=== PATIENT | female | born 1935 | race Caucasian/White ===

== ENCOUNTER → 2017-11-25 00:26 | Outpatient (CLI) | payer MEDICARE, OTHER, SELFPAY ==
--- NOTE | 2017-11-25 14:48 | DI.REPORT_ITS ---
SYMPTOMS/DIAGNOSIS: TRANSIENT DIZZINESS, R42 CAROTID ULTRASOUND: Comparison is made with September,. Intimal thickening and focal calcified plaque are seen along the right common carotid artery. No flow is detectable in the right internal carotid artery. There are elevated velocities in the right external carotid artery. Plaque is seen at the left common carotid bulb and left internal carotid artery. There are significant velocity elevations throughout, consistent with greater than 70% stenosis. Both vertebral arteries show antegrade flow. Elevated systolic velocities also seen in the left external carotid artery. IMPRESSION: 1. Occlusion of the right internal carotid artery. 2. Severe stenosis, greater than 70%, of the left internal carotid artery.
== END ==
PROVIDERS: Visit Provider Internal Medicine
DX: R42 Dizziness and giddiness (principal); I65.23 Occlusion and stenosis of bilateral carotid arteries
CPT/HCPCS: 93880

== ENCOUNTER → 2017-12-06 02:23 | Outpatient (CLI) | payer MEDICARE, OTHER, SELFPAY ==
--- NOTE | 2017-12-30 16:37 | ZIOP_ITS ---
ZIO PATCH REPORT Date of Dictation: 12/29/17 Referral: Saji Wilson M.D. Study Indication: Dizziness and giddiness. Enrollment: 12/06/17 until 12/20/17 Findings: 1. Baseline sinus rhythm, 63-116 bpm, average 86 bpm. 2. Occasional PAC, 252 SVT runs, fastest 4 beats at 187 bpm, longest 17 beats at 115 bpm. Recurrent episodes with possible ectopic atrial rhythm/ectopic atrial tachycardia, 78-110 bpm. No atrial fibrillation. 3. Rare PVC, no VT. 4. No significant pauses. 5. One diary event: Dizziness with narrow complex rhythm, 98 bpm, sinus rhythm versus ectopic atrial rhythm.
== END ==
PROVIDERS: Visit Provider Internal Medicine
DX: R55 Syncope and collapse (principal); R42 Dizziness and giddiness; I47.1 Supraventricular tachycardia
CPT/HCPCS: 0296T; 93225

== ENCOUNTER 2017-12-29 09:21 | Outpatient (CLI) | payer MEDICARE, OTHER, SELFPAY | END 2017-12-29 09:41 | PROVIDERS: PCP Internal Medicine; Referring Provider Internal Medicine; Visit Provider Internal Medicine Cardiovascular Disease | DX: R42 Dizziness and giddiness (principal); R55 Syncope and collapse; I47.1 Supraventricular tachycardia | CPT/HCPCS: 0298T ==

== ENCOUNTER 2018-01-15 11:24 | Emergency (ER) | payer MEDICARE, OTHER, SELFPAY ==
[2018-01-15] VITALS (17 sets, daily range): BP systolic 126–154; BP diastolic 60–108; PULSE 74–86; RESP 22–33; TEMP 36.6; O2SAT 91–99
[2018-01-15 11:52] LABS: Abs Immature Grans 0.01 k/cumm (0.0-0.09); Absolute Basophil Count 0.07 k/cumm (0.0-0.2); Absolute Eosinophil Count 0.11 k/cumm (0.0-0.7); Absolute Lymphocyte Count 1.08 k/cumm (1.2-3.4); Absolute Monocyte Count 0.54 k/cumm (0.11-0.7); Absolute Neutrophil Count 3.75 k/cumm (1.2-6.7); Basophils % 1.3; HGB 13.6 g/dL (12.0-15.5); Immature Grans % 0.2; Lymphocytes % 19.4; Mean Corpuscular Hemoglobin 32.3 pg (27.0-33.0); Mean Platelet Volume 10.2 fL (8.0-11.0); Monocytes % 9.7; Neutrophils % 67.4; Platelet Count 223 x1000/uL (130-400); RBC 4.21 m/cumm (4.00-5.20); RBC Distribution Width 13.2 % (11.7-14.6); White Blood Cell Count 5.56 k/cumm (4.4-10.8)
[2018-01-15 11:58] LABS: PTT Activated 22.9 sec (21.0-31.4)
[2018-01-15 11:59] LABS: ALT 15 U/L (12-78); AST 12 U/L (15-37); Albumin 3.7 g/dL (3.4-5.0); Alkaline Phosphatase 70 U/L (46-116); Anion Gap 6.5 mmol/L (3-11); BUN 9 mg/dL (7-18); Bilirubin, Direct 0.16 mg/dL (0.00-0.20); Bilirubin, Total 0.8 mg/dL (0.2-1.0); CO2 29.5 mmol/L (21.0-32.0); CREATININE 0.73 mg/dL (0.55-1.02); Calcium 9.1 mg/dL (8.5-10.1); Chloride 101 mmol/L (98-107); Glucose 76 mg/dL (70-100); Potassium 3.5 mmol/L (3.5-5.1); Sodium 137 mmol/L (136-145); Total Protein 6.8 g/dL (6.4-8.2)
[2018-01-15 12:05] LABS: Troponin I < 0.02 ng/mL (0.00-0.06)
--- NOTE | 2018-01-15 12:05 | DI.RAD_ITS ---
SYMPTOM/DIAGNOSIS: CHEST PAIN PA AND LATERAL CHEST: Comparison is made with 01/29/16. Heart size and pulmonary vasculature are within normal limits. The lungs are clear and well expanded. No effusions or pneumothoraces are identified. No focal consolidating infiltrates are identified. The bones show degenerative changes in the spine. Incidental note is made of calcification of the mitral valve. IMPRESSION: No acute pulmonary process.
--- NOTE | 2018-01-15 12:06 | W.ED.GENAD ---
Discharge Plan Disposition Patient Disposition: HOME Condition: Improving Discharge Details Chief Complaint: Chest Pain Clinical Impression: Chronic chest wall pain Primary Care Provider: Saji Wilson ED Provider: Roxanne Wagoner Home Meds and New Rx's Prescriptions: Continue donepezil 5 MG tablet 5 mg PO DAILY RF: 0 simvastatin 10 MG tablet 10 mg PO DAILY RF: 0 propranolol 10 MG tablet 10 mg PO BID RF: 0 sertraline 25 MG tablet 25 mg PO DAILY RF: 0 omeprazole 20 MG capsule,delayed release(DR/EC) 20 mg PO DAILY Qty: 30 RF: 0 aspirin 81 mg Tablet,Chewable 81 mg PO DAILY RF: 0 Discharge Instructions Instructions: Chest Pain (ED), Chest Wall Pain (ED) Additional Instructions: Alternate tylenol or motrin as needed and directed for pain. Drink plenty of fluids and get plenty of rest. Follow-up with her scheduled appointment with your primary care doctor on Wednesday. Return immediately to the emergency department any worsening or new concerning symptoms. Discharge Data Discharge Physician: Roxanne Wagoner Medical Decision Making 82-year-old female with a history of dementia, hyperlipidemia who presents for chronic chest pain for the past year that occurs daily, but worse this morning and that it persisted longer than usual. states he usually gives patient a dose of his own nitro which relieves it at times but no relief after 2 doses this morning. No DVT/PE risk factors such as denies leg pain or swelling, recent travel, recent surgery. She has no complaints of fever or cough. She does admit to some shortness of breath at times with her episodes which are worsened with exertion and better with rest. Family does also admit that she has had a history of esophageal dilation and has had EGD in the past. Afebrile. Heart rate 80s. Blood pressure 132/66. Oxygen saturation 88-92% on room air. She has significant tenderness palpation of her anterior chest but no rash or trauma. Lungs are clear to auscultation. No calf tenderness or leg swelling. 1130: EKG: Rate of 83, sinus, peak T waves in V3 which is seen in previous. Less than [address] depression noted in 1 and V6 which is been seen in previous. T-wave inversion in aVL which is been seen in previous. No acute ST elevation. Differential diagnosis includes angina, ACS, pneumonia, aortic dissection, pulmonary embolism, GI etiology, musculoskeletal chest wall pain vs strain, costochondritis, arthritis. Will do a cardiac workup including d-dimer, BNP, chest x-ray. Will give a dose of aspirin and Toradol. 1325 --labs and imaging reviewed. White blood cell count normal at 5.5. D-dimer negative. Electrolytes within normal limits. Troponin negative. BNP 842. Chest x-ray no acute findings. Patient feels much better and is requesting to go home. Her pain is completely resolved. Nurse stated that patient's pain seemed improved before giving the Toradol. 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 As her pain was worse this morning and lasted longer than usual, recommended to check a second troponin and patient and family are agreeable. Patient has a follow-up appointment with PCP Dr. Wilson this week. Patient is requesting food. Will give food and f/u on second troponin. 1445 --second troponin negative. Patient and family is requesting to go home. Patient ate a full meal and denies any pain. They have a follow-up appointment with Dr. Wilson on Wednesday. Instructed to keep this appointment to discuss any further pain and whether any other additional medications such as steroids would be indicated. Otherwise instructed to alternate Tylenol and Motrin as needed and directed. Instructed on limiting Motrin due to risk of GI bleeding and confusion. Instructed to return immediately to the ER with any concerns. HPI General Mode of arrival: ambulatory. Date/Time Provider Initiated Documentation: 01/15/18 11:26. Limitations to Documentation: no limitations. Information obtained by: patient. HPI Narrative: Patient is an 82yo F with a history of chronic anterior chest pain for years who presents with anterior chest pain since 8 AM this morning. Patient has a history of dimension and is able to provide some history but mainly has been is able to help. Patient does state that the pain radiates from the right side of her chest to the left side of her chest. states that patient complains of daily anterior chest pain and that she complained of this same chest pain this morning but it seemed to last longer than usual. He gave her 2 of his own nitro ?2 without relief. He states sometimes this helps her with the pain. He states he has given it to her twice over the past few weeks sometimes with relief. Usually her episodes are worse with movement and exertion and better with rest. Patient has seen her primary care doctor Dr. Wilson for her chronic chest pain in the past and recently had a carotid ultrasound and career technical education teacher per Dr. Wilson which family was stated noted significant blockage and no arrhythmias, respectively. states that patient does complain of some chest pain when she has these episodes. Denies fatigue, vomiting, dizziness, fever or cough. Denies recent travel, recent surgery, leg pain or swelling. Past Medical History: Carotid artery stenosis, high cholesterol, chronic tremor Surgical history: Hysterectomy Social history: Denies tobacco, alcohol or drugs Medications: Aspirin, Donepezil, Zocor, Prilosec, Zoloft Allergies: NKDA Related Data Home Medications Medication Instructions Recorded Confirmed donepezil 5 mg PO DAILY 06/23/15 01/15/18 propranolol 10 mg PO BID 06/23/15 01/15/18 sertraline 25 mg PO DAILY 06/23/15 01/15/18 simvastatin 10 mg PO DAILY 06/23/15 01/15/18 omeprazole 20 mg PO DAILY #30 capsule. 06/24/15 01/15/18 aspirin 81 mg PO DAILY 01/15/18 01/15/18 Previous Rx's Medication Instructions Recorded omeprazole 20 mg PO DAILY #30 capsule. 06/24/15 Allergies Allergy/AdvReac Type Severity Reaction Status Date / Time No Known Allergies Allergy Unverified 01/15/18 11:37 General Stated Complaint: Chest Pain BOSSMAN: 2 Review of Systems Review of Systems All systems reviewed & are unremarkable except as noted in HPI and below Constitutional Denies chills, Denies excessive sweating, Denies fatigue, Denies fever(s), Denies weakness and Denies weight loss Eyes Patient Reports system reviewed and no additional complaints, except as docu and Denies blurry vision ENT Denies vertigo, Denies dizziness, Denies otalgia, Denies nasal congestion, Denies sore throat and Denies throat swelling Cardiovascular Reports chest pain, Denies syncope, Denies rapid heart rate and Denies dyspnea Respiratory Denies dyspnea Gastrointestinal Denies abdominal pain, Denies diarrhea and Denies vomiting Genitourinary Denies hematuria, Denies dysuria and Denies flank pain Musculoskeletal Denies back pain and Denies joint swelling Integumentary/Breasts Denies lesions and Denies rash Neurologic Denies vertigo, Denies dizziness, Denies syncope and Denies weakness Psychiatric Denies depression Endocrine Denies excessive sweating and Denies fatigue Hematologic/Lymphatic Denies easy bruising and Denies lymphadenopathy Allergic/Immunologic Denies throat swelling [facility] Social History Smoking/Tobacco Use Status: Never Exam Const General: cooperative and not in acute distress Orientation: alert and awake [facility] Head: normal to inspection Ears: hearing grossly normal bilaterally and external ears normal General nose exam: external nose normal Face and sinus: normal facial exam Mouth: oral mucosae normal Eyes General: appearance normal, both eyes and all related structures Eyelids: eyelids normal EOM: EOM intact bilaterally Neck Neck: normal visual inspection Chest Chest: normal inspection of the chest and tenderness (across anterior chest ) Resp Effort & Inspection: normal respiratory effort and able to speak in complete sentences Auscultation: clear to auscultation bilaterally Cardio Rate: regular rate Rhythm: regular rhythm GI Inspection: normal to inspection Palpation: soft, not firm, no guarding, no hepatosplenomegaly, no masses and nontender Auscultation: normal bowel sounds Skin General skin exam: no rashes or lesions noted Neuro General: alert and awake Cognition: normal cognition Speech: speech normal Motor: muscle tone normal throughout Sensory Exam: no sensory deficits noted Extrem General: normal to inspection, full ROM and no edema Psych Appearance: grossly normal Speech and Movement: speech and movement normal Affect: normal affect Course Vital Signs Temperature 97.9 F 01/15/18 11:31 Pulse 84 01/15/18 11:31 Respiratory Rate 26 H 01/15/18 11:31 Blood Pressure 132/66 01/15/18 11:31 Pulse Oximetry 96 01/15/18 11:31 Temperature 97.9 F 01/15/18 11:31 Pulse 84 01/15/18 11:31 Respiratory Rate 26 H 01/15/18 11:31 Blood Pressure 132/66 01/15/18 11:31 Pulse Oximetry 96 01/15/18 11:31 Lab/Test Results Lab/Test Results: Laboratory Tests Range/Units 01/15/18 01/15/18 11:36 11:36 WBC (4.4-10.8) k/cumm 5.56 RBC (4.00-5.20) m/cumm 4.21 Hgb (12.0-15.5) g/dL 13.6 Hct (36.0-46.0) % 40.0 MCV (80-95) fL 95.0 MCH (27.0-33.0) pg 32.3 MCHC (32.0-36.0) g/dL 34.0 RDW (11.7-14.6) % 13.2 Plt Count (130-400) x1000/uL 223 MPV (8.0-11.0) fL 10.2 Immature Gran % 0.2 Neutrophils % 67.4 Lymphocytes % 19.4 Monocytes % 9.7 Eosinophils % 2.0 Basophils % 1.3 Absolute Neutrophils (1.2-6.7) k/cumm 3.75 Absolute Lymphocytes (1.2-3.4) k/cumm 1.08 L Absolute Monocytes (0.11-0.7) k/cumm 0.54 Absolute Eosinophils (0.0-0.7) k/cumm 0.11 Absolute Basophils (0.0-0.2) k/cumm 0.07 PT (9.3-10.8) sec 10.0 INR (1.0-3.5) 1.0 APTT (21.0-31.4) sec 22.9
--- NOTE | 2018-01-15 12:11 | ED.GENADUL_ITS ---
Discharge Plan Disposition Patient Disposition: HOME Condition: Improving Discharge Details Chief Complaint: Chest Pain Clinical Impression: Chronic chest wall pain Primary Care Provider: Saji Wilson ED Provider: Roxanne Wagoner Home Meds and New Rx's Prescriptions: Continue donepezil 5 MG tablet 5 mg PO DAILY RF: 0 simvastatin 10 MG tablet 10 mg PO DAILY RF: 0 propranolol 10 MG tablet 10 mg PO BID RF: 0 sertraline 25 MG tablet 25 mg PO DAILY RF: 0 omeprazole 20 MG capsule,delayed release(DR/EC) 20 mg PO DAILY Qty: 30 RF: 0 aspirin 81 mg Tablet,Chewable 81 mg PO DAILY RF: 0 Discharge Instructions Instructions: Chest Pain (ED), Chest Wall Pain (ED) Additional Instructions: Alternate tylenol or motrin as needed and directed for pain. Drink plenty of fluids and get plenty of rest. Follow-up with her scheduled appointment with your primary care doctor on Wednesday. Return immediately to the emergency department any worsening or new concerning symptoms. Discharge Data Discharge Physician: Roxanne Wagoner Medical Decision Making 82-year-old female with a history of dementia, hyperlipidemia who presents for chronic chest pain for the past year that occurs daily, but worse this morning and that it persisted longer than usual. states he usually gives patient a dose of his own nitro which relieves it at times but no relief after 2 doses this morning. No DVT/PE risk factors such as denies leg pain or swelling, recent travel, recent surgery. She has no complaints of fever or cough. She does admit to some shortness of breath at times with her episodes which are worsened with exertion and better with rest. Family does also admit that she has had a history of esophageal dilation and has had EGD in the past. Afebrile. Heart rate 80s. Blood pressure 132/66. Oxygen saturation 88-92% on room air. She has significant tenderness palpation of her anterior chest but no rash or trauma. Lungs are clear to auscultation. No calf tenderness or leg swelling. 1130: EKG: Rate of 83, sinus, peak T waves in V3 which is seen in previous. Less than [address] depression noted in 1 and V6 which is been seen in previous. T-wave inversion in aVL which is been seen in previous. No acute ST elevation. Differential diagnosis includes angina, ACS, pneumonia, aortic dissection, pulmonary embolism, GI etiology, musculoskeletal chest wall pain vs strain, costochondritis, arthritis. Will do a cardiac workup including d-dimer, BNP, chest x-ray. Will give a dose of aspirin and Toradol. 1325 --labs and imaging reviewed. White blood cell count normal at 5.5. D- dimer negative. Electrolytes within normal limits. Troponin negative. BNP 842. Chest x-ray no acute findings. Patient feels much better and is requesting to go home. Her pain is completely resolved. Nurse stated that patient's pain seemed improved before giving the Toradol. 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 As her pain was worse this morning and lasted longer than usual, recommended to check a second troponin and patient and family are agreeable. Patient has a follow-up appointment with PCP Dr. Wilson this week. Patient is requesting food. Will give food and f/u on second troponin. 1445 --second troponin negative. Patient and family is requesting to go home. Patient ate a full meal and denies any pain. They have a follow-up appointment with Dr. Wilson on Wednesday. Instructed to keep this appointment to discuss any further pain and whether any other additional medications such as steroids would be indicated. Otherwise instructed to alternate Tylenol and Motrin as needed and directed. Instructed on limiting Motrin due to risk of GI bleeding and confusion. Instructed to return immediately to the ER with any concerns. HPI General Mode of arrival: ambulatory . Date/Time Provider Initiated Documentation: 01/15/18 11:26 . Limitations to Documentation: no limitations . Information obtained by: patient . HPI Narrative: Patient is an 82yo F with a history of chronic anterior chest pain for years who presents with anterior chest pain since 8 AM this morning. Patient has a history of dimension and is able to provide some history but mainly has been is able to help. Patient does state that the pain radiates from the right side of her chest to the left side of her chest. states that patient complains of daily anterior chest pain and that she complained of this same chest pain this morning but it seemed to last longer than usual. He gave her 2 of his own nitro ?2 without relief. He states sometimes this helps her with the pain. He states he has given it to her twice over the past few weeks sometimes with relief. Usually her episodes are worse with movement and exertion and better with rest. Patient has seen her primary care doctor Dr. Wilson for her chronic chest pain in the past and recently had a carotid ultrasound and athletic monitor per Dr. Wilson which family was stated noted significant blockage and no arrhythmias, respectively. states that patient does complain of some chest pain when she has these episodes. Denies fatigue, vomiting, dizziness, fever or cough. Denies recent travel, recent surgery, leg pain or swelling. Past Medical History: Carotid artery stenosis, high cholesterol, chronic tremor Surgical history: Hysterectomy Social history: Denies tobacco, alcohol or drugs Medications: Aspirin, Donepezil, Zocor, Prilosec, Zoloft Allergies: NKDA Related Data Home Medications Medication Instructions Recorded Confirmed donepezil 5 mg PO DAILY 06/23/15 01/15/18 propranolol 10 mg PO BID 06/23/15 01/15/18 sertraline 25 mg PO DAILY 06/23/15 01/15/18 simvastatin 10 mg PO DAILY 06/23/15 01/15/18 omeprazole 20 mg PO DAILY #30 capsule. 06/24/15 01/15/18 aspirin 81 mg PO DAILY 01/15/18 01/15/18 Previous Rx's Medication Instructions Recorded omeprazole 20 mg PO DAILY #30 capsule. 06/24/15 Allergies Allergy/AdvReac Type Severity Reaction Status Date / Time No Known Allergies Allergy Unverified 01/15/18 11:37 General Stated Complaint: Chest Pain BOSSMAN: 2 Review of Systems Review of Systems All systems reviewed & are unremarkable except as noted in HPI and below Constitutional Denies chills, Denies excessive sweating, Denies fatigue, Denies fever(s), Denies weakness and Denies weight loss Eyes Patient Reports system reviewed and no additional complaints, except as docu and Denies blurry vision ENT Denies vertigo, Denies dizziness, Denies otalgia, Denies nasal congestion, Denies sore throat and Denies throat swelling Cardiovascular Reports chest pain, Denies syncope, Denies rapid heart rate and Denies dyspnea Respiratory Denies dyspnea Gastrointestinal Denies abdominal pain, Denies diarrhea and Denies vomiting Genitourinary Denies hematuria, Denies dysuria and Denies flank pain Musculoskeletal Denies back pain and Denies joint swelling Integumentary/Breasts Denies lesions and Denies rash Neurologic Denies vertigo, Denies dizziness, Denies syncope and Denies weakness Psychiatric Denies depression Endocrine Denies excessive sweating and Denies fatigue Hematologic/Lymphatic Denies easy bruising and Denies lymphadenopathy Allergic/Immunologic Denies throat swelling [facility] Social History Smoking/Tobacco Use Status: Never Exam Const General: cooperative and not in acute distress Orientation: alert and awake [facility] Head: normal to inspection Ears: hearing grossly normal bilaterally and external ears normal General nose exam: external nose normal Face and sinus: normal facial exam Mouth: oral mucosae normal Eyes General: appearance normal, both eyes and all related structures Eyelids: eyelids normal EOM: EOM intact bilaterally Neck Neck: normal visual inspection Chest Chest: normal inspection of the chest and tenderness (across anterior chest ) Resp Effort & Inspection: normal respiratory effort and able to speak in complete sentences Auscultation: clear to auscultation bilaterally Cardio Rate: regular rate Rhythm: regular rhythm GI Inspection: normal to inspection Palpation: soft, not firm, no guarding, no hepatosplenomegaly, no masses and nontender Auscultation: normal bowel sounds Skin General skin exam: no rashes or lesions noted Neuro General: alert and awake Cognition: normal cognition Speech: speech normal Motor: muscle tone normal throughout Sensory Exam: no sensory deficits noted Extrem General: normal to inspection, full ROM and no edema Psych Appearance: grossly normal Speech and Movement: speech and movement normal Affect: normal affect Course Vital Signs Temperature 97.9 F 01/15/18 11:31 Pulse 84 01/15/18 11:31 Respiratory Rate 26 H 01/15/18 11:31 Blood Pressure 132/66 01/15/18 11:31 Pulse Oximetry 96 01/15/18 11:31 Temperature 97.9 F 01/15/18 11:31 Pulse 84 01/15/18 11:31 Respiratory Rate 26 H 01/15/18 11:31 Blood Pressure 132/66 01/15/18 11:31 Pulse Oximetry 96 01/15/18 11:31 Lab/Test Results Lab/Test Results: Laboratory Tests Range/Units 01/15/18 01/15/18 11:36 11:36 WBC (4.4-10.8) k/cumm 5.56 RBC (4.00-5.20) m/cumm 4.21 Hgb (12.0-15.5) g/dL 13.6 Hct (36.0-46.0) % 40.0 MCV (80-95) fL 95.0 MCH (27.0-33.0) pg 32.3 MCHC (32.0-36.0) g/dL 34.0 RDW (11.7-14.6) % 13.2 Plt Count (130-400) x1000/uL 223 MPV (8.0-11.0) fL 10.2 Immature Gran % 0.2 Neutrophils % 67.4 Lymphocytes % 19.4 Monocytes % 9.7 Eosinophils % 2.0 Basophils % 1.3 Absolute Neutrophils (1.2-6.7) k/cumm 3.75 Absolute Lymphocytes (1.2-3.4) k/cumm 1.08 L Absolute Monocytes (0.11-0.7) k/cumm 0.54 Absolute Eosinophils (0.0-0.7) k/cumm 0.11 Absolute Basophils (0.0-0.2) k/cumm 0.07 PT (9.3-10.8) sec 10.0 INR (1.0-3.5) 1.0 APTT (21.0-31.4) sec 22.9
[2018-01-15 12:30] LABS: NT-proBNP 842 pg/mL
--- NOTE | 2018-01-15 12:34 | DI.VRAD_ITS ---
EXAM: XR Chest, 2 Views CLINICAL HISTORY: 82 years old, female; Pain; Chest pain; Type not specified TECHNIQUE: Frontal and lateral views of the chest. COMPARISON: CR CHEST 2 VIEWS PA,LAT 01/29/2016 2:32 PM FINDINGS: Lungs: Mild bilateral interstitial pattern of chronic changes. No infiltrates or effusions. Pleural space: Unremarkable. No pneumothorax. Heart: Unremarkable. No cardiomegaly. Mediastinum: Unremarkable. Bones/joints: Unremarkable. Vasculature: Atherosclerotic aortic arch. IMPRESSION: No infiltrates or effusions. Dictated and Authenticated by: Osman Aburto MD. Ordering:YOLANDA KIRKPATRICK MD
[2018-01-15 12:40] LABS: D-Dimer 398 ng/mlFEU (<500)
[2018-01-15] MEDS: Ketorolac 30 MG/ML VIAL IM (13:05)
[2018-01-15 14:41] LABS: Troponin I < 0.02 ng/mL (0.00-0.06)
== END 2018-01-15 14:57 | disposition home or self-care (01) ==
PROVIDERS: Emergency Provider Physician Assistant; PCP Internal Medicine
DX: R07.89 Other chest pain (principal); G89.29 Other chronic pain; F03.90 Unspecified dementia, unspecified severity, without behavioral disturbance, psychotic disturbance, mood disturbance, and anxiety
CPT/HCPCS: 36415; 80053; 80076; 93005; 96372; 99285; 71046; 83735; 83880; 84484; 85025; 85379; 85610; 85730; 93010; J1885

== ENCOUNTER 2018-06-10 21:43 | Inpatient (IN) | payer MEDICARE, OTHER, SELFPAY ==
[2018-06-10] VITALS (25 sets, daily range): BP systolic 102–175; BP diastolic 40–89; PULSE 117–156; RESP 2–50; TEMP 36.1–37.3; O2SAT 70–99
[2018-06-10] MEDS: LORazepam 2 MG/ML VIAL 1 MG IVP (21:51)
--- NOTE | 2018-06-10 21:57 | ED.GENADUL_ITS ---
Discharge Plan Disposition Patient Disposition: [facility] INPATIENT Condition: Serious Discharge Details Chief Complaint: SOB Clinical Impression: Acute respiratory distress Reason For Visit: MARYA Primary Care Provider: Saji Wilson ED Provider: Jose Ramon Castellano [place] Meds and New Rx's Prescriptions: No Action donepezil 5 MG tablet 5 mg PO DAILY RF: 0 simvastatin 10 MG tablet 10 mg PO DAILY RF: 0 propranolol 10 MG tablet 10 mg PO BID RF: 0 sertraline 25 MG tablet 25 mg PO DAILY RF: 0 omeprazole 20 MG capsule,delayed release(DR/EC) 20 mg PO DAILY Qty: 30 RF: 0 aspirin 81 mg Tablet,Chewable 81 mg PO DAILY RF: 0 Medical Decision Making Patient arrives in severe respiratory distress. and daughter arrive with her. Patient agitated, anxious, hypoxic despite nasal cannula oxygen. Discussed with what patient's wishes would be. He states she would not want to be intubated nor would she want to be resuscitated. Therefore, elected to give Ativan and try BiPAP while obtaining chest x-ray, EKG, laboratory studies. Patient was given 1 mg of Ativan IV. She was quite agitated and anxious. Unfortunately, this was probably a little too much for the patient. Her respiratory drive dropped dramatically. She was on BiPAP. I chose to reverse her to some degree with 0.25 mg of Romazicon. She responded to this and had a better respiratory drive. Saturations came up into the 90s with BiPAP at 10/ 100%. Chest x-ray was obtained. She has diffuse alveolar infiltrates may be related to infection versus pulmonary edema. Flu swab was obtained and is negative. She does have an elevated white count. Spoke with hospitalist and had him come in to evaluate and discuss treatment plans. Patient was given ceftriaxone and azithromycin. Troponin did come back indeterminate at 0.2. BNP around 2500 which is the highest it has been for her. Electrolytes are okay. Differential includes pulmonary edema however she has no elevated blood pressure which would have caused her to flash. It is possible that is related to ARDS and influenza despite a negative flu. Possible that is multi-focal pneumonia and she has been given antibiotics. She has received a few doses of morphine 2 mg IV which helped dramatically. Li has been placed. Patient will be admitted to the hospitalist service for further management. Lab Data Lab results reviewed: Yes I reviewed the patient's lab results. ECG Data Attestation: I personally reviewed and interpreted this ECG (s) as follows: Prior ECG tracings: available for review Interpretation: Appears to be sinus tachycardia with frequent ectopic beats. She has a left bundle branch block present. She has had incomplete left bundle branch block previously. HPI General Mode of arrival: EMS . Date/Time Provider Initiated Documentation: 06/10/18 21:53 . Limitations to Documentation: altered mental status . Information obtained by: family and EMS . HPI Narrative: Patient is brought in with severe respiratory distress. EMS reports room air saturations in the 70s on their arrival. They did attempt nonrebreather as well as CPAP which patient would not tolerate. She arrives on nasal cannula with saturations in the high 80s. She is agitated and anxious. EMS was able to establish an IV. Per the patient has had a cold with congestion and cough for the last week. No fever that he is aware of. She has chronic complaints of chest pain but as far as he knows did not complain of chest pain today. After dinner she abruptly became short of breath. She had not been having difficulty breathing prior to that despite the congestion and cough. She does not have a history of COPD. She has never been a smoker. She has never had a heart attack or heart problems that they are aware of. Related Data Home Medications Medication Instructions Recorded Confirmed donepezil 5 mg PO DAILY 06/23/15 01/15/18 propranolol 10 mg PO BID 06/23/15 01/15/18 sertraline 25 mg PO DAILY 06/23/15 01/15/18 simvastatin 10 mg PO DAILY 06/23/15 01/15/18 omeprazole 20 mg PO DAILY #30 capsule. 06/24/15 01/15/18 aspirin 81 mg PO DAILY 01/15/18 01/15/18 Previous Rx's Medication Instructions Recorded omeprazole 20 mg PO DAILY #30 capsule. 06/24/15 Allergies Allergy/AdvReac Type Severity Reaction Status Date / Time No Known Allergies Allergy Unverified 06/10/18 22:24 General Stated Complaint: SOB BOSSMAN: 1 Review of Systems Review of Systems Unobtainable due to (Severe respiratory distress) [facility] Medical History Carotid artery stenosis (Chronic) Hyperlipidemia (Chronic) Dementia (Chronic) Surgical History H/O: hysterectomy (Inactive) S/P cholecystectomy (Inactive) Social History Smoking and Tabacco status: Never Exam Const General: in distress Orientation: alert and awake HENMT Head: normocephalic and atraumatic Neck Neck: trachea midline, supple and no JVD Resp Effort & Inspection: respiratory distress and tachypneic Auscultation: rales, rhonchi and wheezes (few) Cardio Rate: tachycardic Rhythm: regular rhythm Heart Sounds: S1 normal and S2 normal GI Inspection: non-distended Palpation: soft Skin Other: Ashen color, no diaphoresis Neuro General: alert, awake, not oriented x3, no focal motor deficits and CN's II-XI intact bilaterally Extrem General: edema Course Vital Signs Temperature 97.0 F L 06/10/18 21:50 Pulse 120 H 06/10/18 21:50 Respiratory Rate 34 H 06/10/18 21:50 Blood Pressure 136/79 06/10/18 21:50 Pulse Oximetry 78 L 06/10/18 21:50 Temperature 97.0 F L 06/10/18 21:50 Temperature Source Temporal Artery Scan 06/10/18 21:50 Pulse 120 H 06/10/18 21:50 Respiratory Rate 34 H 06/10/18 21:50 Blood Pressure 136/79 06/10/18 21:50 Pulse Oximetry 78 L 06/10/18 21:50 Oxygen Delivery Method Nasal Cannula 06/10/18 21:50 Oxygen Flow Rate 6 06/10/18 21:50 Critical Care Time Critical Care Time: Yes Total Critical Care Time: 60 Attestation: respiratory distress
[2018-06-10] MEDS: Ondansetron 4 MG/2 ML VIAL IVP (22:02)
--- NOTE | 2018-06-10 22:14 | DI.RAD_ITS ---
SYMPTOM/DIAGNOSIS: RESPIRATORY DISTRESS PORTABLE AP CHEST: Comparison is made with 01/15/18. Heart size appears within normal limits. There are bilateral air space opacities. No gross effusions or pneumothoraces are identified. IMPRESSION: Bilateral pulmonary infiltrates. This may represent pneumonia however pulmonary edema cannot be excluded. Please correlate clinically.
--- NOTE | 2018-06-10 22:23 | DI.VRAD_ITS ---
EXAM: XR Chest, 1 View EXAM DATE/TIME: 06/10/2018 9:54 PM CLINICAL HISTORY: 82 years old, female; Signs and symptoms; Shortness of breath TECHNIQUE: XR of the chest, 1 view. COMPARISON: CR XR CHEST 2V PA LATERAL 01/15/2018 12:01 PM FINDINGS: Lungs: Diffuse patchy airspace process. Pleural space: Unremarkable. No evidence of pneumothorax. Heart/Mediastinum: Unremarkable. Heart size within normal limits for technique. Bones/joints: Unremarkable. IMPRESSION: Findings could represent bronchopneumonia or patchy alveolar pulmonary edema. 6 week followup study suggested as there are some focal components. Dictated and Authenticated by: Saji Fernandez MD. Ordering:RONALD Albright MD
[2018-06-10] MEDS: Albuterol/Ipratropium 3 ML UPD VIAL UPD (22:27)
[2018-06-10 22:30] LABS: HCT 43.7 % (36.0-46.0); HGB 13.8 g/dL (12.0-15.5); Mean Corp. HGB Concentration 31.6 g/dL (32.0-36.0); Mean Corpuscular Hemoglobin 30.7 pg (27.0-33.0); Mean Corpuscular Volume 97.1 fL (80-95); Mean Platelet Volume 10.6 fL (8.0-11.0); Platelet Count 328 x1000/uL (130-400); RBC Distribution Width 13.6 % (11.7-14.6); White Blood Cell Count 18.32 k/cumm (4.4-10.8)
[2018-06-10] MEDS: MORPHine 10 MG/ML VIAL 2 MG IVP ×2 (22:31→23:20)
[2018-06-10 22:52] LABS: Absolute Eosinophil Count 0.73 k/cumm (0.0-0.7); Absolute Lymphocyte Count 2.56 k/cumm (1.2-3.4); Absolute Monocyte Count 0.73 k/cumm (0.11-0.7); Absolute Neutrophil Count 14.11 k/cumm (1.2-6.7); Diff Comment Manual Differential; RBC Morphology Normal
[2018-06-10] MEDS: AZITHROMYCIN 500 MG in Normal Saline 250 ML 250 MG IVPB (22:52)
[2018-06-10 23:01] LABS: ALT 31 U/L (12-78); AST 40 U/L (15-37); Albumin 3.5 g/dL (3.4-5.0); Alkaline Phosphatase 107 U/L (46-116); Anion Gap 14.1 mmol/L (3-11); BUN 12 mg/dL (7-18); Bilirubin, Total 0.6 mg/dL (0.2-1.0); CO2 23.9 mmol/L (21.0-32.0); CREATININE 1.25 mg/dL (0.55-1.02); Calcium 8.7 mg/dL (8.5-10.1); Chloride 97 mmol/L (98-107); Estimated GFR 41.24 (mL/min/1.73m2); Glucose 405 mg/dL (70-100); Potassium 3.6 mmol/L (3.5-5.1); Sodium 135 mmol/L (136-145); Total Protein 7.6 g/dL (6.4-8.2)
[2018-06-10 23:02] LABS: NT-proBNP 2367 pg/mL
[2018-06-10 23:04] LABS: Troponin I 0.26 ng/mL (0.00-0.06)
--- NOTE | 2018-06-10 23:06 | NUR.NOTE ---
Nursing Note: Multiple family at bedside, patient remains on bipap. Remains tachycardic 120's-130's, RR 30's. IV abx infusing. Plan for hospitalist to come speak with family on plan of care.
[2018-06-10] MEDS: Furosemide 20 MG/2 ML VIAL (23:20)
--- NOTE | 2018-06-10 23:35 | HPE_ITS ---
Date of service: 06/10/18 Time of Service: 23:22 Assessment and Plan (1) SOB (shortness of breath): Current visit: Yes Status: Acute Shortness of breath. Etiology not clear at present though clearly the matter hinges on the meaning of the chest x-ray findings. Unclear if this is infectious, perhaps aspiration based on the suddenness of the symptom, perhaps flash pulmonary edema on a an ischemic basis, or possibly noncardiogenic pulmonary edema of unknown etiology. Moreover let it be noted that the EKG probably shows a sinus tachycardia with frequent ectopy though there are times when the rhythm is more suggestive of atrial fib relation, particularly on the 12-lead. However careful analysis of the monitor shows a by enlarge regular rhythm so I think the former interpretation is correct I mention this with it in mind the possibility that a primary arrhythmia may have been the precipitant here but I do not think this is case. Regardless, will continue to treat for both infection and congestive heart failure with empiric antibiotics and diarrhea. Will complete rule out protocol. Note the patient is far more comfortable than when he arrived and will continue as needed use of morphine as well. Advanced directives were reviewed with family and patient is DNR/DNI History of Present Illness Chief Complaint: SOB Narrative: Patient is a 82-year-old female with advanced dementia. She had a flulike illness several weeks ago, apparently had pretty much gotten over that. This evening she became suddenly short of breath. There was no report of chest pain but apparently laying down made the situation worse in the emergency room she was initially satting in the 70s and diffuse rales and rhonchi were noted chest x-ray showed diffuse airspace disease, multifocal pneumonitis versus just of heart failure. Patient was placed on BiPAP, received 2 mg of morphine and doses of Rocephin and Zithromax. She was admitted for further evaluation and management. Review of Systems Review of Systems Unobtainable due to mental status [facility] Medical History Carotid artery stenosis (Chronic) Hyperlipidemia (Chronic) Dementia (Chronic) Surgical History H/O: hysterectomy (Inactive) S/P cholecystectomy (Inactive) Social History Smoking and Tabacco status: Never Meds Home Medications Medication Instructions Recorded Confirmed Type donepezil 5 mg PO DAILY 06/23/15 01/15/18 History propranolol 10 mg PO BID 06/23/15 01/15/18 History sertraline 25 mg PO DAILY 06/23/15 01/15/18 History simvastatin 10 mg PO DAILY 06/23/15 01/15/18 History omeprazole 20 mg PO DAILY #30 capsule. 06/24/15 01/15/18 Rx aspirin 81 mg PO DAILY 01/15/18 01/15/18 History Allergies Allergy/AdvReac Type Severity Reaction Status Date / Time No Known Allergies Allergy Unverified 06/10/18 22:24 Exam Narrative Exam Narrative: Temp 37.3 pressure 104/40 pulse 119 respirations 29 O2 sat 99% on BiPAP HEENT shows no signs of head trauma. Neck is supple lungs show diffuse rhonchi by. Heart sounds are obscured by respirations, there is an irregular rhythm abdomen is soft nontender pelvic and rectal exams deferred extremities without edema neurological patient is oriented x1 moves all 4 Results Labs : 06/10/18 22:19 06/10/18 22:19 Laboratory Results - last 24 hr 06/10/18 06/10/18 06/10/18 22:19 22:19 22:19 WBC 18.32 H RBC 4.50 Hgb 13.8 Hct 43.7 MCV 97.1 H MCH 30.7 MCHC 31.6 L RDW 13.6 Plt Count 328 MPV 10.6 Immature Gran % 0.0 Neutrophils % 68.0 Band Neutrophils % 9.0 Lymphocytes % 14.0 Monocytes % 4.0 Eosinophils % 4.0 Basophils % 0.0 Metamyelocytes % 1.0 Absolute Neutrophils 14.11 H Absolute Lymphocytes 2.56 Absolute Monocytes 0.73 H Absolute Eosinophils 0.73 H Absolute Basophils 0.00 Differential Comment Manual differential RBC Morphology Normal Sodium 135 L Potassium 3.6 Chloride 97 L Carbon Dioxide 23.9 Anion Gap 14.1 H BUN 12 Creatinine 1.25 H Estimated GFR/1.73 m2 41.24 Glucose 405 H Calcium 8.7 Magnesium 2.0 Total Bilirubin 0.6 AST 40 H ALT 31 Alkaline Phosphatase 107 Troponin I 0.26 H* NT-Pro-B Natriuret Pep 2367 H Total Protein 7.6 Albumin 3.5 Last Vital Signs Temp 37.3 C 06/10/18 22:42 Pulse 119 H 06/10/18 23:07 Resp 29 H 06/10/18 23:07 BP 104/40 L 06/10/18 23:07 Pulse Ox 99 06/10/18 23:07
--- NOTE | 2018-06-10 23:42 | NUR.NOTE ---
Nursing Note: adams cath placed, remains on bipap, medicated with prn morphine for anxiety. plan for ICU admission.
[2018-06-11] VITALS (71 sets, daily range): BP systolic 93–161; BP diastolic 53–110; PULSE 88–153; RESP 8–97; TEMP 36.4–36.8; O2SAT 92–99
[2018-06-11] MEDS: MORPHine 10 MG/ML VIAL IVP ×4 (00:52→06:53)
[2018-06-11] MEDS: methylPREDNISolone SUCC 125 MG VIAL IVP (00:52)
[2018-06-11] MEDS: Normal Saline Flush 10 ML SYR IVP ×6 (00:53→08:32)
[2018-06-11] MEDS: Furosemide 20 MG/2 ML VIAL IVP (00:53)
[2018-06-11 07:27] LABS: HCT 40.6 % (36.0-46.0); Mean Corpuscular Volume 96.7 fL (80-95); Mean Platelet Volume 11.1 fL (8.0-11.0); Platelet Count 244 x1000/uL (130-400); RBC Distribution Width 13.8 % (11.7-14.6); White Blood Cell Count 18.48 k/cumm (4.4-10.8)
[2018-06-11 07:39] LABS: Anion Gap 10.6 mmol/L (3-11); BUN 14 mg/dL (7-18); CO2 27.4 mmol/L (21.0-32.0); CREATININE 1.14 mg/dL (0.55-1.02); Calcium 8.5 mg/dL (8.5-10.1); Chloride 102 mmol/L (98-107); Estimated GFR 45.86 (mL/min/1.73m2); Glucose 188 mg/dL (70-100); Potassium 3.9 mmol/L (3.5-5.1); Sodium 140 mmol/L (136-145)
[2018-06-11 07:55] LABS: Troponin I 6.68 ng/mL (0.00-0.06)
--- NOTE | 2018-06-11 08:11 | DI.VRAD_ITS ---
EXAM: XR Chest, 1 View EXAM DATE/TIME: 06/11/2018 6:43 AM CLINICAL HISTORY: 82 years old, female; Signs and symptoms; Shortness of breath TECHNIQUE: XR of the chest, 1 view. COMPARISON: SC XR PORTABLE CHEST AP 06/10/2018 10:05 PM FINDINGS: Lungs: Mild interval worsening of left mid lung zone multifocal patchy consolidation. Persistent right mid and lower lung zone patchy consolidation, unchanged. Pleural space: New bilateral pleural effusions, larger on right. No pneumothorax. Heart/Mediastinum: Normal-sized cardiac silhouette. Bones/joints: Degenerative changes throughout the thoracic and upper lumbar spine. IMPRESSION: 1. Persistent bilateral patchy consolidation with mild worsening on the left. 2. New bilateral small pleural effusions. Dictated and Authenticated by: Tony Bass MD. Ordering:CARLI Gaines MD
--- NOTE | 2018-06-11 08:30 | DI.RAD_ITS ---
SYMPTOM/DIAGNOSIS: F/U SOB PORTABLE AP CHEST: Comparison is made with 06/10/18. There is poor inspiration. Cardiac silhouette appears within normal limits. There are again seen bilateral pulmonary opacities. They have slightly progressed on the left. There are now small bilateral pleural effusions. No pneumothorax is identified. Degenerative changes are seen in the spine. IMPRESSION: Bilateral pulmonary infiltrates, left greater than right. New bilateral pleural effusions.
[2018-06-11] MEDS: Metoprolol 5 MG/5 ML VIAL 2.5 MG IVP (08:31)
[2018-06-11 09:25] LABS: PTT Activated 22.3 sec (21.0-31.4)
[2018-06-11] MEDS: PIPERACILLIN/TAZO 3.375 GM in Normal Saline 50 ML IVPB (10:20)
[2018-06-11] MEDS: methylPREDNISolone SUCC 125 MG VIAL 60 MG IVP (10:21)
[2018-06-11] MEDS: Aspirin 300 MG SUPP PR (10:21)
--- NOTE | 2018-06-11 10:27 | PDOC.CMIN ---
Care Management Initial Assess REASON FOR HOSPITALIZATION:: SOB PAST MEDICAL HISTORY/PAST SURGICAL HISTORY:: Medical: Carotid artery stenosis, hyperlipidemia, dementia. Surgical: Hysterectomy, cholecystectomy PREVIOUS FUNCTIONAL STATUS/SOCIAL/FAMILY SUPPORTS:: Lives with her , Darrell Sims, who is also the POA at their home in [place]. They have two daughters who are supportive, Jonna Haynes ([phone]) and Abel Salas ([phone]). Last hospital admission was as an outpatient for cataract removal in 2010. CURRENT FUNCTIONAL STATUS:: Lying in bed. Appears comfortable and responds to voice by opening her eyes. Bipap in use at this time. and both daughters are at her bedside. ADVANCE DIRECTIVES:: None on file Has patient been provided with information about the portal?: No Did the patient sign up for the portal?: No CODE STATUS:: DNR/DNI INSURANCE COVERAGE / FINANCIAL ISSUES:: Medicare. [employer] CURRENT HOME/COMMUNITY SERVICES/EQUIPMENT:: None at this time PRIMARY CARE PHYSICIAN:: [facility]: Kal Wilson MD POTENTIAL DISCHARGE NEEDS:: None anticipated at this time PATIENT/FAMILY EDUCATION NEEDS:: Discharge instructions ANTICIPATED BARRIERS TO DISCHARGE:: None identified TRANSPORTATION:: Family PLAN:: Plan transfer to [facility] as soon as bed is available. Hopefully today. Daughters will bring and meet her at [facility].
--- NOTE | 2018-06-11 11:43 | INITIAL_ITS ---
Care Management Initial Assess REASON FOR HOSPITALIZATION:: SOB PAST MEDICAL HISTORY/PAST SURGICAL HISTORY:: Medical: Carotid artery stenosis, hyperlipidemia, dementia. Surgical: Hysterectomy, cholecystectomy PREVIOUS FUNCTIONAL STATUS/SOCIAL/FAMILY SUPPORTS:: Lives with her , Darrell Sims, who is also the POA at their home in [place]. They have two daughters who are supportive, Jonna Haynes ([phone]) and Abel Salas ([phone]). Last hospital admission was as an outpatient for cataract removal in 2010. CURRENT FUNCTIONAL STATUS:: Lying in bed. Appears comfortable and responds to voice by opening her eyes. Bipap in use at this time. and both daughters are at her bedside. ADVANCE DIRECTIVES:: None on file Has patient been provided with information about the portal?: No Did the patient sign up for the portal?: No CODE STATUS:: DNR/DNI INSURANCE COVERAGE / FINANCIAL ISSUES:: Medicare. [employer] CURRENT HOME/COMMUNITY SERVICES/EQUIPMENT:: None at this time PRIMARY CARE PHYSICIAN:: [facility]: Kal Wilson MD POTENTIAL DISCHARGE NEEDS:: None anticipated at this time PATIENT/FAMILY EDUCATION NEEDS:: Discharge instructions ANTICIPATED BARRIERS TO DISCHARGE:: None identified TRANSPORTATION:: Family PLAN:: Plan transfer to [facility] as soon as bed is available. Hopefully today. Daughters will bring and meet her at [facility].
[2018-06-11 12:28] LABS: BE -1.4 mmol/L (-3-3); HCO3 25 mmol/L (22-28); pCO2 50 mmHg (34-47); pH 7.31 (7.35-7.45); pO2 66 mmHg (83-108); sO2 93 % (94-98); tCO2 23 mmol/L (22-29)
[2018-06-11 12:30] LABS: FIO2L 4 L; Site Left Radial
[2018-06-11 12:47] LABS: Troponin I 8.49 ng/mL (0.00-0.06)
--- NOTE | 2018-06-11 13:11 | W.PM.DS.N ---
Date of service: 06/11/18 Time of Service: 13:12 DS: Diagnosis Discharge Diagnosis (1) NSTEMI (non-ST elevated myocardial infarction): Status: Acute (2) Acute respiratory failure with hypoxia and hypercapnia: Status: Acute (3) Sepsis: Status: Acute (4) Multifocal pneumonia: Status: Acute (5) Acute CHF: Status: Acute (6) Bilateral pleural effusion: Status: Acute (7) Dysphagia: Status: Chronic (8) Hyperlipidemia: Status: Chronic (9) Alzheimer disease: Status: Chronic Discharge Plan Disposition Patient Disposition: [facility] Condition: Critical Discharge Details Reason For Visit: SOB Admit Date/Time: 06/10/18 23:47 Admit Provider: Eder Solano Attending Provider: Eder Solano Primary Care Provider: Saji Wilson Hospital Course Hospital Course: Ms Sims is an 82 year old female with PMHx of hyperlipidemia, nonsustained SVT seen on Halter monitor in 01/11, negative nuclear stress test in 2015, esophageal phase dysphagia requiring esophageal dilatation in the past, who was brought to [facility] ED on 06/10/18 by ambulance for shortness of breath and hypoxia to 70's on room air. The patient was also mildly agitated and received ativan, which was followed up oversedation, treated with flumazenil, but requiring BiPAP despite this due to respiratory depression. Her CXR was consistent with either/both multifocal pneumonia and CHF. She was diuresed and initiated on antibiotics (azithromycin, rocephin), which we then transitioned to zosyn due to suspicion for aspiration to have better anaerobic coverage and doxycycline for atypicals. She remained on BiPAP overnight and did not tolerated trial off of BiPAP today, having episoes of apnea off of it as well as CO2 retention. Meanwhile, her troponin went up from 0.26 on her initial presentation to 6.68 the morning of 06/11 to 8.49 in the early afternoon. The patient is not reporting any chest pain, but she did report chest pain to her yesterday. Her EKG is not significantly changed from prior done in December of 2017, is borderline for LBBB. She was initiated on heparin drip, but could not pass a nursing bedside swallow screen to safely be loaded with oral plavix. She received rectal aspirin. [facility] does not have cardiolony coverage over the weekend. At this point, the family is willing to have the patient transferred to [facility] to obtain services unavailable at [facility] such as cardiology, including the possibility of a cardiac intervention (they would not want a CABG). The patient is DNR/DNI. Dr Green at [facility] cardiology accepts the patient. We appreciate the help of our [facility] colleagues and wish the patient well. Home Meds and New Rx's Prescriptions: New atorvastatin [Lipitor] 40 mg Tablet 40 mg PO QPM Qty: 0 RF: 0 albuterol sulfate 2.5 mg /3 mL (0.083 %) Solution For Nebulization 2.5 mg UPD Q4H PRN PRNQty: 0 RF: 0 doxycycline hyclate 100 mg recon soln 100 mg IV Q12H Qty: 1 RF: 0 Solu-Medrol (PF) 125 mg/2 mL Recon Soln 60 mg IVP Q6H Qty: 0 RF: 0 pantoprazole [Protonix] 40 mg Recon Soln 40 mg IVP DAILY Qty: 0 RF: 0 piperacillin-tazobactam [Zosyn] 3.375 gram Recon Soln 3.375 g IVPB Q6H Qty: 0 RF: 0 heparin (porcine) in 0.9% NaCl 25,000 unit/250 mL parenteral solution See Rx Instructions .ROUTE .COMPLEX Qty: 3000 RF: 0 clopidogrel [Plavix] 75 mg tablet 75 mg PO DAILY Qty: 7 RF: 0 Continued donepezil 5 MG tablet 5 mg PO DAILY RF: 0 sertraline 25 MG tablet 25 mg PO DAILY RF: 0 aspirin 81 mg Tablet,Chewable 81 mg PO DAILY RF: 0 Discontinued simvastatin 10 MG tablet 10 mg PO DAILY RF: 0 Discharge Instructions Instructions: Acute Coronary Syndrome (DC), Bacterial Pneumonia (DC) Activity:: bedrest with BiPAP Diet:: NPO Discharge Orders Discharge Orders: Discharge Order (Routine); Ordered 06/11/18 Ordered By: Angely Lee Exam Narrative Exam Narrative: General: frail female, A&Ox1, on BiPAP, at the time last seen trying to get out of bed HEENT: EOMI, dry MM Heart: RRR, no m/r/g Lungs: diminished at B bases; otherwise, rhonchi B GI: abdomen is soft, nontender, nondistended Extremities: No e/c/c BLE's DS: Data Vitals/I&O Vitals and I&O: Vital Signs Temperature 36.4 C L 06/11/18 08:30 Temperature Source Tympanic 06/11/18 08:30 Pulse 108 H 06/11/18 11:30 Pulse 115 H 06/11/18 11:31 Respiratory Rate 24 06/11/18 11:31 Respiratory Effort Incrsd Work of Breathing 06/11/18 08:30 Respiratory Depth Shallow 06/11/18 08:30 Respiratory Pattern Tachypnea 06/11/18 08:30 Blood Pressure 141/79 H 06/11/18 11:30 Blood Pressure Mean 92 06/11/18 11:30 Blood Pressure Position Supine 06/11/18 08:30 Pulse Oximetry 95 06/11/18 12:06 Oxygen Delivery Method OxyMask 06/11/18 12:06 Oxygen Flow Rate 4 06/11/18 12:06 Fraction of Inspired Oxygen (FIO2) 32 06/11/18 08:30 Pain Level 0 06/10/18 23:07 Intake & Output 06/10/18 06/11/18 06/11/18 23:59 11:59 23:59 Intake Total 340 / 340 300 / 300 Output Total 800 / 800 Balance 340 / 340 -500 / -500 Weight 58.967 kg 58.8 kg Intake: IV 340 / 340 300 / 300 Oral 0 / 0 Output: Urine 800 / 800 Other: Urine Color Yellow Urine Appearance Clear Comment adams cath in place and draining dark win urine Pending studies at discharge: CXR 06/11/18: 1. Persistent bilateral patchy consolidation with mild worsening on the left. 2. New bilateral small pleural effusions. CXR 06/10/18: Findings could represent bronchopneumonia or patchy alveolar pulmonary edema. 6 week followup study suggested as there are some focal components. Labs on day of discharge: Labs from last 24 hours 06/11/18 06/11/18 06/11/18 16:00 12:24 12:17 WBC RBC Hgb Hct MCV MCH MCHC RDW Plt Count MPV Immature Gran % Neutrophils % Band Neutrophils % Lymphocytes % Monocytes % Eosinophils % Basophils % Metamyelocytes % Absolute Neutrophils Absolute Lymphocytes Absolute Monocytes Absolute Eosinophils Absolute Basophils Differential Comment RBC Morphology APTT Pending Sample Site Left radial pCO2 50 H pO2 66 L O2 Saturation 93 L ABG pH 7.31 L ABG HCO3 25 ABG Total CO2 23 ABG Base Excess -1.4 Oxygen Liter Flow 4 Sodium Potassium Chloride Carbon Dioxide Anion Gap BUN Creatinine Estimated GFR/1.73 m2 Glucose Calcium Magnesium Total Bilirubin AST ALT Alkaline Phosphatase Troponin I 8.49 H* NT-Pro-B Natriuret Pep Total Protein Albumin 06/11/18 06/11/18 06/11/18 08:59 06:30 06:30 WBC 18.48 H RBC 4.20 Hgb 13.0 Hct 40.6 MCV 96.7 H MCH 31.0 MCHC 32.0 RDW 13.8 Plt Count 244 MPV 11.1 H Immature Gran % Neutrophils % Band Neutrophils % Lymphocytes % Monocytes % Eosinophils % Basophils % Metamyelocytes % Absolute Neutrophils Absolute Lymphocytes Absolute Monocytes Absolute Eosinophils Absolute Basophils Differential Comment RBC Morphology APTT 22.3 Sample Site pCO2 pO2 O2 Saturation ABG pH ABG HCO3 ABG Total CO2 ABG Base Excess Oxygen Liter Flow Sodium Potassium Chloride Carbon Dioxide Anion Gap BUN Creatinine Estimated GFR/1.73 m2 Glucose Calcium Magnesium Total Bilirubin AST ALT Alkaline Phosphatase Troponin I 6.68 H* NT-Pro-B Natriuret Pep Total Protein Albumin 06/11/18 06/10/18 06/10/18 06:30 22:19 22:19 WBC 18.32 H RBC 4.50 Hgb 13.8 Hct 43.7 MCV 97.1 H MCH 30.7 MCHC 31.6 L RDW 13.6 Plt Count 328 MPV 10.6 Immature Gran % 0.0 Neutrophils % 68.0 Band Neutrophils % 9.0 Lymphocytes % 14.0 Monocytes % 4.0 Eosinophils % 4.0 Basophils % 0.0 Metamyelocytes % 1.0 Absolute Neutrophils 14.11 H Absolute Lymphocytes 2.56 Absolute Monocytes 0.73 H Absolute Eosinophils 0.73 H Absolute Basophils 0.00 Differential Comment Manual differential RBC Morphology Normal APTT Sample Site pCO2 pO2 O2 Saturation ABG pH ABG HCO3 ABG Total CO2 ABG Base Excess Oxygen Liter Flow Sodium 140 Potassium 3.9 Chloride 102 Carbon Dioxide 27.4 Anion Gap 10.6 BUN 14 Creatinine 1.14 H Estimated GFR/1.73 m2 45.86 Glucose 188 H D Calcium 8.5 Magnesium Total Bilirubin AST ALT Alkaline Phosphatase Troponin I NT-Pro-B Natriuret Pep 2367 H Total Protein Albumin 06/10/18 22:19 WBC RBC Hgb Hct MCV MCH MCHC RDW Plt Count MPV Immature Gran % Neutrophils % Band Neutrophils % Lymphocytes % Monocytes % Eosinophils % Basophils % Metamyelocytes % Absolute Neutrophils Absolute Lymphocytes Absolute Monocytes Absolute Eosinophils Absolute Basophils Differential Comment RBC Morphology APTT Sample Site pCO2 pO2 O2 Saturation ABG pH ABG HCO3 ABG Total CO2 ABG Base Excess Oxygen Liter Flow Sodium 135 L Potassium 3.6 Chloride 97 L Carbon Dioxide 23.9 Anion Gap 14.1 H BUN 12 Creatinine 1.25 H Estimated GFR/1.73 m2 41.24 Glucose 405 H Calcium 8.7 Magnesium 2.0 Total Bilirubin 0.6 AST 40 H ALT 31 Alkaline Phosphatase 107 Troponin I 0.26 H* NT-Pro-B Natriuret Pep Total Protein 7.6 Albumin 3.5 06/10/18 22:38 Blood Blood Culture - Pending Preliminary micro results at discharge 06/10/18 22:38 Blood Culture - Pending Blood [facility] Medical History Carotid artery stenosis (Chronic) Hyperlipidemia (Chronic) Dementia (Chronic) Dysphagia (Chronic) History of esophageal dilatation (Chronic) Surgical History H/O: hysterectomy (Inactive) S/P cholecystectomy (Inactive) Social History Smoking and Tabacco status: Never
--- NOTE | 2018-06-11 13:18 | DSE_ITS ---
Date of service: 06/11/18 Time of Service: 13:12 DS: Diagnosis Discharge Diagnosis (1) NSTEMI (non-ST elevated myocardial infarction): Status: Acute (2) Acute respiratory failure with hypoxia and hypercapnia: Status: Acute (3) Sepsis: Status: Acute (4) Multifocal pneumonia: Status: Acute (5) Acute CHF: Status: Acute (6) Bilateral pleural effusion: Status: Acute (7) Dysphagia: Status: Chronic (8) Hyperlipidemia: Status: Chronic (9) Alzheimer disease: Status: Chronic Discharge Plan Disposition Patient Disposition: [facility] Condition: Critical Discharge Details Reason For Visit: SOB Admit Date/Time: 06/10/18 23:47 Admit Provider: Eder Solano Attending Provider: Eder Solano Primary Care Provider: Saji Wilson Hospital Course Hospital Course: Ms Sims is an 82 year old female with PMHx of hyperlipidemia, nonsustained SVT seen on Halter monitor in 01/11, negative nuclear stress test in 2015, esophageal phase dysphagia requiring esophageal dilatation in the past, who was brought to [facility] ED on 06/10/18 by ambulance for shortness of breath and hypoxia to 70's on room air. The patient was also mildly agitated and received ativan, which was followed up oversedation, treated with flumazenil, but requiring BiPAP despite this due to respiratory depression. Her CXR was consistent with either/both multifocal pneumonia and CHF. She was diuresed and initiated on antibiotics ( azithromycin, rocephin), which we then transitioned to zosyn due to suspicion for aspiration to have better anaerobic coverage and doxycycline for atypicals. She remained on BiPAP overnight and did not tolerated trial off of BiPAP today, having episoes of apnea off of it as well as CO2 retention. Meanwhile, her troponin went up from 0.26 on her initial presentation to 6.68 the morning of 06/11 to 8.49 in the early afternoon. The patient is not reporting any chest pain, but she did report chest pain to her yesterday. Her EKG is not significantly changed from prior done in December of 2017, is borderline for LBBB. She was initiated on heparin drip, but could not pass a nursing bedside swallow screen to safely be loaded with oral plavix. She received rectal aspirin. [facility] does not have cardiolony coverage over the weekend. At this point, the family is willing to have the patient transferred to [facility] to obtain services unavailable at [facility] such as cardiology, including the possibility of a cardiac intervention (they would not want a CABG). The patient is DNR/DNI. Dr Green at [facility] cardiology accepts the patient. We appreciate the help of our [facility] colleagues and wish the patient well. Home Meds and New Rx's Prescriptions: New atorvastatin [Lipitor] 40 mg Tablet 40 mg PO QPM Qty: 0 RF: 0 albuterol sulfate 2.5 mg /3 mL (0.083 %) Solution For Nebulization 2.5 mg UPD Q4H PRN PRNQty: 0 RF: 0 doxycycline hyclate 100 mg recon soln 100 mg IV Q12H Qty: 1 RF: 0 Solu-Medrol (PF) 125 mg/2 mL Recon Soln 60 mg IVP Q6H Qty: 0 RF: 0 pantoprazole [Protonix] 40 mg Recon Soln 40 mg IVP DAILY Qty: 0 RF: 0 piperacillin-tazobactam [Zosyn] 3.375 gram Recon Soln 3.375 g IVPB Q6H Qty: 0 RF: 0 heparin (porcine) in 0.9% NaCl 25,000 unit/250 mL parenteral solution See Rx Instructions .ROUTE .COMPLEX Qty: 3000 RF: 0 clopidogrel [Plavix] 75 mg tablet 75 mg PO DAILY Qty: 7 RF: 0 Continued donepezil 5 MG tablet 5 mg PO DAILY RF: 0 sertraline 25 MG tablet 25 mg PO DAILY RF: 0 aspirin 81 mg Tablet,Chewable 81 mg PO DAILY RF: 0 Discontinued simvastatin 10 MG tablet 10 mg PO DAILY RF: 0 Discharge Instructions Instructions: Acute Coronary Syndrome (DC), Bacterial Pneumonia (DC) Activity:: bedrest with BiPAP Diet:: NPO Discharge Orders Discharge Orders: Discharge Order (Routine); Ordered 06/11/18 Ordered By: Angely Lee Exam Narrative Exam Narrative: General: frail female, A&Ox1, on BiPAP, at the time last seen trying to get out of bed HEENT: EOMI, dry MM Heart: RRR, no m/r/g Lungs: diminished at B bases; otherwise, rhonchi B GI: abdomen is soft, nontender, nondistended Extremities: No e/c/c BLE's DS: Data Vitals/I&O Vitals and I&O: Vital Signs Temperature 36.4 C L 06/11/18 08:30 Temperature Source Tympanic 06/11/18 08:30 Pulse 108 H 06/11/18 11:30 Pulse 115 H 06/11/18 11:31 Respiratory Rate 24 06/11/18 11:31 Respiratory Effort Incrsd Work of Breathing 06/11/18 08:30 Respiratory Depth Shallow 06/11/18 08:30 Respiratory Pattern Tachypnea 06/11/18 08:30 Blood Pressure 141/79 H 06/11/18 11:30 Blood Pressure Mean 92 06/11/18 11:30 Blood Pressure Position Supine 06/11/18 08:30 Pulse Oximetry 95 06/11/18 12:06 Oxygen Delivery Method OxyMask 06/11/18 12:06 Oxygen Flow Rate 4 06/11/18 12:06 Fraction of Inspired Oxygen (FIO2) 32 06/11/18 08:30 Pain Level 0 06/10/18 23:07 Intake & Output 06/10/18 06/11/18 06/11/18 23:59 11:59 23:59 Intake Total 340 / 340 300 / 300 Output Total 800 / 800 Balance 340 / 340 -500 / -500 Weight 58.967 kg 58.8 kg Intake: IV 340 / 340 300 / 300 Oral 0 / 0 Output: Urine 800 / 800 Other: Urine Color Yellow Urine Appearance Clear Comment adams cath in place and draining dark win urine Pending studies at discharge: CXR 06/11/18: 1. Persistent bilateral patchy consolidation with mild worsening on the left. 2. New bilateral small pleural effusions. CXR 06/10/18: Findings could represent bronchopneumonia or patchy alveolar pulmonary edema. 6 week followup study suggested as there are some focal components. Labs on day of discharge: Labs from last 24 hours 06/11/18 06/11/18 06/11/18 16:00 12:24 12:17 WBC RBC Hgb Hct MCV MCH MCHC RDW Plt Count MPV Immature Gran % Neutrophils % Band Neutrophils % Lymphocytes % Monocytes % Eosinophils % Basophils % Metamyelocytes % Absolute Neutrophils Absolute Lymphocytes Absolute Monocytes Absolute Eosinophils Absolute Basophils Differential Comment RBC Morphology APTT Pending Sample Site Left radial pCO2 50 H pO2 66 L O2 Saturation 93 L ABG pH 7.31 L ABG HCO3 25 ABG Total CO2 23 ABG Base Excess -1.4 Oxygen Liter Flow 4 Sodium Potassium Chloride Carbon Dioxide Anion Gap BUN Creatinine Estimated GFR/1.73 m2 Glucose Calcium Magnesium Total Bilirubin AST ALT Alkaline Phosphatase Troponin I 8.49 H* NT-Pro-B Natriuret Pep Total Protein Albumin 06/11/18 06/11/18 06/11/18 08:59 06:30 06:30 WBC 18.48 H RBC 4.20 Hgb 13.0 Hct 40.6 MCV 96.7 H MCH 31.0 MCHC 32.0 RDW 13.8 Plt Count 244 MPV 11.1 H Immature Gran % Neutrophils % Band Neutrophils % Lymphocytes % Monocytes % Eosinophils % Basophils % Metamyelocytes % Absolute Neutrophils Absolute Lymphocytes Absolute Monocytes Absolute Eosinophils Absolute Basophils Differential Comment RBC Morphology APTT 22.3 Sample Site pCO2 pO2 O2 Saturation ABG pH ABG HCO3 ABG Total CO2 ABG Base Excess Oxygen Liter Flow Sodium Potassium Chloride Carbon Dioxide Anion Gap BUN Creatinine Estimated GFR/1.73 m2 Glucose Calcium Magnesium Total Bilirubin AST ALT Alkaline Phosphatase Troponin I 6.68 H* NT-Pro-B Natriuret Pep Total Protein Albumin 06/11/18 06/10/18 06/10/18 06:30 22:19 22:19 WBC 18.32 H RBC 4.50 Hgb 13.8 Hct 43.7 MCV 97.1 H MCH 30.7 MCHC 31.6 L RDW 13.6 Plt Count 328 MPV 10.6 Immature Gran % 0.0 Neutrophils % 68.0 Band Neutrophils % 9.0 Lymphocytes % 14.0 Monocytes % 4.0 Eosinophils % 4.0 Basophils % 0.0 Metamyelocytes % 1.0 Absolute Neutrophils 14.11 H Absolute Lymphocytes 2.56 Absolute Monocytes 0.73 H Absolute Eosinophils 0.73 H Absolute Basophils 0.00 Differential Comment Manual differential RBC Morphology Normal APTT Sample Site pCO2 pO2 O2 Saturation ABG pH ABG HCO3 ABG Total CO2 ABG Base Excess Oxygen Liter Flow Sodium 140 Potassium 3.9 Chloride 102 Carbon Dioxide 27.4 Anion Gap 10.6 BUN 14 Creatinine 1.14 H Estimated GFR/1.73 m2 45.86 Glucose 188 H D Calcium 8.5 Magnesium Total Bilirubin AST ALT Alkaline Phosphatase Troponin I NT-Pro-B Natriuret Pep 2367 H Total Protein Albumin 06/10/18 22:19 WBC RBC Hgb Hct MCV MCH MCHC RDW Plt Count MPV Immature Gran % Neutrophils % Band Neutrophils % Lymphocytes % Monocytes % Eosinophils % Basophils % Metamyelocytes % Absolute Neutrophils Absolute Lymphocytes Absolute Monocytes Absolute Eosinophils Absolute Basophils Differential Comment RBC Morphology APTT Sample Site pCO2 pO2 O2 Saturation ABG pH ABG HCO3 ABG Total CO2 ABG Base Excess Oxygen Liter Flow Sodium 135 L Potassium 3.6 Chloride 97 L Carbon Dioxide 23.9 Anion Gap 14.1 H BUN 12 Creatinine 1.25 H Estimated GFR/1.73 m2 41.24 Glucose 405 H Calcium 8.7 Magnesium 2.0 Total Bilirubin 0.6 AST 40 H ALT 31 Alkaline Phosphatase 107 Troponin I 0.26 H* NT-Pro-B Natriuret Pep Total Protein 7.6 Albumin 3.5 06/10/18 22:38 Blood Blood Culture - Pending Preliminary micro results at discharge 06/10/18 22:38 Blood Culture - Pending Blood [facility] Medical History Carotid artery stenosis (Chronic) Hyperlipidemia (Chronic) Dementia (Chronic) Dysphagia (Chronic) History of esophageal dilatation (Chronic) Surgical History H/O: hysterectomy (Inactive) S/P cholecystectomy (Inactive) Social History Smoking and Tabacco status: Never
[2018-06-11] MEDS: DOXYCYCLINE 100 MG in Normal Saline 100 ML IVPB (13:48)
[2018-06-11] MEDS: Haloperidol 5 MG/ML VIAL 2 MG IM ×2 (14:04→14:16)
--- NOTE | 2018-06-11 14:55 | PDOC.CMDIS ---
LACE Index Scoring Tool - Questions: Length of Stay (in days): 2 Acuity (Admit via E.D.?): Yes Comorbidities: Dementia E.D. Visits: 1 - Answers: Total Score: 9 Risk of Readmission: Low Risk Care Management Discharge Reason for Hospitalization: SOB Discharge Plan: Transfer to [facility], [facility], for further Cardiology workup and treatment. Patient/Family Education Needs: Follow up appointments and all new medications.
--- NOTE | 2018-06-11 14:59 | CMDISCH_ITS ---
LACE Index Scoring Tool - Questions: Length of Stay (in days): 2 Acuity (Admit via E.D.?): Yes Comorbidities: Dementia E.D. Visits: 1 - Answers: Total Score: 9 Risk of Readmission: Low Risk Care Management Discharge Reason for Hospitalization: SOB Discharge Plan: Transfer to [facility], [facility], for further Cardiology workup and treatment. Patient/Family Education Needs: Follow up appointments and all new medications.
[2018-06-11] MEDS: LORazepam 2 MG/ML VIAL 0.5 MG IVP (15:00)
== END 2018-06-11 16:40 | disposition short-term general hospital (02) | DRG 189 ==
LOC: ER 06-11 00:02 → ICU 06-11 00:17
PROVIDERS: Admitting Provider General Practice; Emergency Provider Emergency Medicine; PCP Internal Medicine; Visit Provider Internal Medicine
DX: J96.02 Acute respiratory failure with hypercapnia (principal); I21.4 Non-ST elevation (NSTEMI) myocardial infarction; A41.9 Sepsis, unspecified organism; J90 Pleural effusion, not elsewhere classified; J96.01 Acute respiratory failure with hypoxia; R06.81 Apnea, not elsewhere classified; I50.9 Heart failure, unspecified; R13.10 Dysphagia, unspecified; E78.5 Hyperlipidemia, unspecified; G30.9 Alzheimer's disease, unspecified; F02.80 Dementia in other diseases classified elsewhere, unspecified severity, without behavioral disturbance, psychotic disturbance, mood disturbance, and anxiety; Z66 Do not resuscitate
CPT/HCPCS: 36415; 80048; 80053; 82805; 85027; 87040; 87449; 94640; 94644; 99222; 99239; 99291; 36600; 71045; 83735; 83880; 84484; 85025; 85730; 93005; 93010; 94660; J0456; J0696; J1630; J1941; J2060; J2270; J2543; J2930; J7620

== ENCOUNTER 2018-07-10 03:19 | Inpatient (IN) | payer MEDICARE, OTHER, SELFPAY ==
[2018-07-10] VITALS (56 sets, daily range): BP systolic 84–154; BP diastolic 35–92; PULSE 74–162; RESP 13–50; TEMP 30–36.9; O2SAT 65–99
--- NOTE | 2018-07-10 03:21 | W.ED.GENAD ---
Discharge Plan Disposition Patient Disposition: [facility] INPATIENT Condition: Stable Discharge Details Chief Complaint: SOB Clinical Impression: Pulmonary edema, Hypoxia Primary Care Provider: Saji Batista ED Provider: Alvin Armendariz [place] Meds and New Rx's Prescriptions: No Action donepezil 5 MG tablet 5 mg PO DAILY RF: 0 sertraline 25 MG tablet 25 mg PO DAILY RF: 0 aspirin 81 mg Tablet,Chewable 81 mg PO DAILY RF: 0 atorvastatin [Lipitor] 40 mg Tablet 40 mg PO QPM Qty: 0 RF: 0 albuterol sulfate 2.5 mg /3 mL (0.083 %) Solution For Nebulization 2.5 mg UPD Q4H PRN PRNQty: 0 RF: 0 doxycycline hyclate 100 mg recon soln 100 mg IV Q12H Qty: 1 RF: 0 Solu-Medrol (PF) 125 mg/2 mL Recon Soln 60 mg IVP Q6H Qty: 0 RF: 0 pantoprazole [Protonix] 40 mg Recon Soln 40 mg IVP DAILY Qty: 0 RF: 0 piperacillin-tazobactam [Zosyn] 3.375 gram Recon Soln 3.375 g IVPB Q6H Qty: 0 RF: 0 heparin (porcine) in 0.9% NaCl 25,000 unit/250 mL parenteral solution See Rx Instructions .ROUTE .COMPLEX Qty: 3000 RF: 0 clopidogrel [Plavix] 75 mg tablet 75 mg PO DAILY Qty: 7 RF: 0 Medical Decision Making 82 yo female with hx of dementia which limits hx from her as she can only tell me her name, hld, who had an nstemi from a pna last month, who comes in with family of worsening shortness of breath. She apparently saw Dr. batista her pcp on Wednesday and was told that she likely has a virus. She has worsening shortness of breath since and so family brought her here. On arrival she is 65% on room air with crackles throughout on lung exam and only able to speak in 1-2 word sentences. The family confirms with me she is dnr/dni. On lung u/s she has diffuse b lines throughout and suspect has pulmonary edema. Will obtain lab work, attempt bipap and also give a dose of lasix. pt would not tolerate sitting back for an adequate chest xray and refuses to do so despite attempts to ask her to. She is also refusing bipap, will attempt HFNC. pt doig better on hfnc, xray shows pulmonary edema and possible infiltrates, though her pictures doesn't fit entirely with pneumonia will order abx to cover for hcap. labs pending labs show troponin of 0.08, she still denies chest pain on my exam and could be downtrending from her admission last month. Spoke with dr. Solano who accepts pt, will admit to icu Differential Diagnosis chf, pna, acs, Imaging Data Radiologic Study: Attestation: I personally reviewed and interpreted this imaging study as follows: Imaging: X-Ray Radiologist's impression: IMPRESSION: Moderate bilateral infiltrate or edema. . Lab Data Lab results reviewed: Yes I reviewed the patient's lab results. ECG Data Attestation: I personally reviewed and interpreted this ECG (s) as follows: Prior ECG tracings: not available for review Interpretation: computer keysha afbi but I feel it is sinus rhythm with significant motion artifact from her tremor/moving, rate of 130, pvc's HPI General Mode of arrival: wheelchair. Date/Time Provider Initiated Documentation: 07/10/18 03:21. Limitations to Documentation: altered mental status (dementia). Information obtained by: family. History of Present Illness 82 year old F presents to the emergency department with the chief complaint of shortness of breath, described as severe, Patient started experiencing this day(s) (2) and it has been other (worsening). No relieving factors improve symptom(s), No exacerbating factors reported . Patient notes weakness. Patient did receive the following treatments prior to arrival, none Related Data Home Medications Medication Instructions Recorded Confirmed donepezil 5 mg PO DAILY 06/23/15 06/11/18 sertraline 25 mg PO DAILY 06/23/15 06/11/18 aspirin 81 mg PO DAILY 01/15/18 06/11/18 albuterol sulfate 2.5 mg UPD Q4H PRN PRN #0 ml 06/11/18 atorvastatin [Lipitor] 40 mg PO QPM #0 tab 06/11/18 clopidogrel [Plavix] 75 mg PO DAILY #7 tab 06/11/18 doxycycline hyclate 100 mg IV Q12H #1 each 06/11/18 heparin (porcine) in 0.9% NaCl See Rx Instructions .ROUTE 06/11/18 .COMPLEX #3000 ml methylprednisolone sod suc(PF) 60 mg IVP Q6H #0 ea 06/11/18 [Solu-Medrol (PF)] pantoprazole [Protonix] 40 mg IVP DAILY #0 ea 06/11/18 piperacillin-tazobactam [Zosyn] 3.375 g IVPB Q6H #0 ea 06/11/18 Previous Rx's Medication Instructions Recorded albuterol sulfate 2.5 mg UPD Q4H PRN PRN #0 ml 06/11/18 atorvastatin [Lipitor] 40 mg PO QPM #0 tab 06/11/18 clopidogrel [Plavix] 75 mg PO DAILY #7 tab 06/11/18 doxycycline hyclate 100 mg IV Q12H #1 each 06/11/18 heparin (porcine) in 0.9% NaCl See Rx Instructions .ROUTE 06/11/18 .COMPLEX #3000 ml methylprednisolone sod suc(PF) 60 mg IVP Q6H #0 ea 06/11/18 [Solu-Medrol (PF)] pantoprazole [Protonix] 40 mg IVP DAILY #0 ea 06/11/18 piperacillin-tazobactam [Zosyn] 3.375 g IVPB Q6H #0 ea 06/11/18 Allergies Allergy/AdvReac Type Severity Reaction Status Date / Time No Known Allergies Allergy Unverified 06/10/18 22:24 General BSOSMAN: 1 Review of Systems Review of Systems Unobtainable due to mental status [facility] Medical History Carotid artery stenosis (Chronic) Hyperlipidemia (Chronic) Dementia (Chronic) Dysphagia (Chronic) History of esophageal dilatation (Chronic) Surgical History H/O: hysterectomy (Inactive) S/P cholecystectomy (Inactive) Social History Smoking/Tobacco Use Status: Never Drug use: Never Details: unable to obtain r/t pt condition Additional Social history: unable to assess privately Exam Const General: acute distress Orientation: alert HENMT Head: normal to inspection Ears: external ears normal General nose exam: external nose normal Mouth: moist mucous membranes Eyes General: appearance normal, both eyes and all related structures Neck Neck: normal visual inspection Resp Effort & Inspection: decreased respiratory effort Skin General skin exam: no rashes or lesions noted Neuro General: alert Extrem General: normal to inspection Psych Mental Status: mental status grossly normal
--- NOTE | 2018-07-10 03:25 | DI.RAD_ITS ---
SYMPTOM/DIAGNOSIS: SOB PORTABLE AP CHEST AT 0345 HOURS: Comparison is made with 06/11/18. The examination is suboptimal. The lung apices and portions of the left hemithorax were coned from view. Heart size appears within normal limits. There do appear to be bilateral pulmonary infiltrates. This may represent edema versus pneumonia.
[2018-07-10] MEDS: Normal Saline Flush 10 ML SYR IVP ×3 (03:35→10:44)
--- NOTE | 2018-07-10 03:37 | ED.GENADUL_ITS ---
Discharge Plan Disposition Patient Disposition: [facility] INPATIENT Condition: Stable Discharge Details Chief Complaint: SOB Clinical Impression: Pulmonary edema, Hypoxia Primary Care Provider: Saji Batista ED Provider: Alvin Armendariz [place] Meds and New Rx's Prescriptions: No Action donepezil 5 MG tablet 5 mg PO DAILY RF: 0 sertraline 25 MG tablet 25 mg PO DAILY RF: 0 aspirin 81 mg Tablet,Chewable 81 mg PO DAILY RF: 0 atorvastatin [Lipitor] 40 mg Tablet 40 mg PO QPM Qty: 0 RF: 0 albuterol sulfate 2.5 mg /3 mL (0.083 %) Solution For Nebulization 2.5 mg UPD Q4H PRN PRNQty: 0 RF: 0 doxycycline hyclate 100 mg recon soln 100 mg IV Q12H Qty: 1 RF: 0 Solu-Medrol (PF) 125 mg/2 mL Recon Soln 60 mg IVP Q6H Qty: 0 RF: 0 pantoprazole [Protonix] 40 mg Recon Soln 40 mg IVP DAILY Qty: 0 RF: 0 piperacillin-tazobactam [Zosyn] 3.375 gram Recon Soln 3.375 g IVPB Q6H Qty: 0 RF: 0 heparin (porcine) in 0.9% NaCl 25,000 unit/250 mL parenteral solution See Rx Instructions .ROUTE .COMPLEX Qty: 3000 RF: 0 clopidogrel [Plavix] 75 mg tablet 75 mg PO DAILY Qty: 7 RF: 0 Medical Decision Making 82 yo female with hx of dementia which limits hx from her as she can only tell me her name, hld, who had an nstemi from a pna last month, who comes in with family of worsening shortness of breath. She apparently saw Dr. batista her pcp on Wednesday and was told that she likely has a virus. She has worsening shortness of breath since and so family brought her here. On arrival she is 65% on room air with crackles throughout on lung exam and only able to speak in 1-2 word sentences. The family confirms with me she is dnr/dni. On lung u/s she has diffuse b lines throughout and suspect has pulmonary edema. Will obtain lab work, attempt bipap and also give a dose of lasix. pt would not tolerate sitting back for an adequate chest xray and refuses to do so despite attempts to ask her to. She is also refusing bipap, will attempt HFNC. pt doig better on hfnc, xray shows pulmonary edema and possible infiltrates, though her pictures doesn't fit entirely with pneumonia will order abx to cover for hcap. labs pending labs show troponin of 0.08, she still denies chest pain on my exam and could be downtrending from her admission last month. Spoke with dr. Solano who accepts pt, will admit to icu Differential Diagnosis chf, pna, acs, Imaging Data Radiologic Study: Attestation: I personally reviewed and interpreted this imaging study as follows: Imaging: X-Ray Radiologist's impression: IMPRESSION: Moderate bilateral infiltrate or edema. . Lab Data Lab results reviewed: Yes I reviewed the patient's lab results. ECG Data Attestation: I personally reviewed and interpreted this ECG (s) as follows: Prior ECG tracings: not available for review Interpretation: computer keysha afbi but I feel it is sinus rhythm with significant motion artifact from her tremor/moving, rate of 130, pvc's HPI General Mode of arrival: wheelchair . Date/Time Provider Initiated Documentation: 07/10/18 03:21 . Limitations to Documentation: altered mental status (dementia) . Information obtained by: family . History of Present Illness 82 year old F presents to the emergency department with the chief complaint of shortness of breath, described as severe, Patient started experiencing this day(s) (2) and it has been other (worsening). No relieving factors improve symptom(s), No exacerbating factors reported . Patient notes weakness. Patient did receive the following treatments prior to arrival, none Related Data Home Medications Medication Instructions Recorded Confirmed donepezil 5 mg PO DAILY 06/23/15 06/11/18 sertraline 25 mg PO DAILY 06/23/15 06/11/18 aspirin 81 mg PO DAILY 01/15/18 06/11/18 albuterol sulfate 2.5 mg UPD Q4H PRN PRN #0 ml 06/11/18 atorvastatin [Lipitor] 40 mg PO QPM #0 tab 06/11/18 clopidogrel [Plavix] 75 mg PO DAILY #7 tab 06/11/18 doxycycline hyclate 100 mg IV Q12H #1 each 06/11/18 heparin (porcine) in 0.9% NaCl See Rx Instructions .ROUTE 06/11/18 .COMPLEX #3000 ml methylprednisolone sod suc(PF) 60 mg IVP Q6H #0 ea 06/11/18 [Solu-Medrol (PF)] pantoprazole [Protonix] 40 mg IVP DAILY #0 ea 06/11/18 piperacillin-tazobactam [Zosyn] 3.375 g IVPB Q6H #0 ea 06/11/18 Previous Rx's Medication Instructions Recorded albuterol sulfate 2.5 mg UPD Q4H PRN PRN #0 ml 06/11/18 atorvastatin [Lipitor] 40 mg PO QPM #0 tab 06/11/18 clopidogrel [Plavix] 75 mg PO DAILY #7 tab 06/11/18 doxycycline hyclate 100 mg IV Q12H #1 each 06/11/18 heparin (porcine) in 0.9% NaCl See Rx Instructions .ROUTE 06/11/18 .COMPLEX #3000 ml methylprednisolone sod suc(PF) 60 mg IVP Q6H #0 ea 06/11/18 [Solu-Medrol (PF)] pantoprazole [Protonix] 40 mg IVP DAILY #0 ea 06/11/18 piperacillin-tazobactam [Zosyn] 3.375 g IVPB Q6H #0 ea 06/11/18 Allergies Allergy/AdvReac Type Severity Reaction Status Date / Time No Known Allergies Allergy Unverified 06/10/18 22:24 General BOSSMAN: 1 Review of Systems Review of Systems Unobtainable due to mental status [facility] Medical History Carotid artery stenosis (Chronic) Hyperlipidemia (Chronic) Dementia (Chronic) Dysphagia (Chronic) History of esophageal dilatation (Chronic) Surgical History H/O: hysterectomy (Inactive) S/P cholecystectomy (Inactive) Social History Smoking/Tobacco Use Status: Never Drug use: Never Details: unable to obtain r/t pt condition Additional Social history: unable to assess privately Exam Const General: acute distress Orientation: alert HENMT Head: normal to inspection Ears: external ears normal General nose exam: external nose normal Mouth: moist mucous membranes Eyes General: appearance normal, both eyes and all related structures Neck Neck: normal visual inspection Resp Effort & Inspection: decreased respiratory effort Skin General skin exam: no rashes or lesions noted Neuro General: alert Extrem General: normal to inspection Psych Mental Status: mental status grossly normal
[2018-07-10] MEDS: Furosemide 40 MG/4 ML VIAL IVP (03:45)
[2018-07-10 04:02] LABS: Abs Immature Grans 0.03 k/cumm (0.0-0.09); Absolute Basophil Count 0.07 k/cumm (0.0-0.2); Absolute Eosinophil Count 0.35 k/cumm (0.0-0.7); Absolute Monocyte Count 0.49 k/cumm (0.11-0.7); Absolute Neutrophil Count 7.73 k/cumm (1.2-6.7); Basophils % 0.6; Eosinophils % 3.1; HCT 45.2 % (36.0-46.0); HGB 14.4 g/dL (12.0-15.5); Immature Grans % 0.3; Lymphocytes % 22.4; Mean Corp. HGB Concentration 31.9 g/dL (32.0-36.0); Mean Corpuscular Volume 97.4 fL (80-95); Mean Platelet Volume 10.5 fL (8.0-11.0); Monocytes % 4.4; Neutrophils % 69.2; Platelet Count 277 x1000/uL (130-400); RBC 4.64 m/cumm (4.00-5.20); White Blood Cell Count 11.17 k/cumm (4.4-10.8)
[2018-07-10] MEDS: PIPERACILLIN/TAZO 3.375 GM in Normal Saline 50 ML IVPB ×3 (04:13→19:35)
[2018-07-10 04:15] LABS: PTT Activated 22.7 sec (21.0-31.4); Prothrombin Time 9.7 sec (9.3-11.0)
--- NOTE | 2018-07-10 04:20 | DI.VRAD_ITS ---
EXAM: XR Chest, 1 View EXAM DATE/TIME: 07/10/2018 3:26 AM CLINICAL HISTORY: 82 years old, female; Signs and symptoms; Shortness of breath TECHNIQUE: XR of the chest, 1 view. COMPARISON: SC XR PORTABLE CHEST AP 06/11/2018 7:32 AM FINDINGS: Lungs: Moderate bilateral infiltrate or edema. Pleural space: Unremarkable. No pleural effusion. No pneumothorax. Heart/Mediastinum: Unremarkable. No cardiomegaly. Bones/joints: Unremarkable. IMPRESSION: Moderate bilateral infiltrate or edema. . Dictated and Authenticated by: Alvin Rodrigues MD. Ordering:YOKASTA Esquivel MD
[2018-07-10 04:21] LABS: ALT 15 U/L (12-78); AST 19 U/L (15-37); Alkaline Phosphatase 106 U/L (46-116); Anion Gap 12.2 mmol/L (3-11); BUN 11 mg/dL (7-18); Bilirubin, Total 0.8 mg/dL (0.2-1.0); CO2 24.8 mmol/L (21.0-32.0); CREATININE 1.22 mg/dL (0.55-1.02); Calcium 8.9 mg/dL (8.5-10.1); Chloride 98 mmol/L (98-107); Estimated GFR 42.41 (mL/min/1.73m2); Glucose 329 mg/dL (70-100); NT-proBNP 3275 pg/mL; Potassium 4.1 mmol/L (3.5-5.1); Sodium 135 mmol/L (136-145); Total Protein 8.3 g/dL (6.4-8.2)
[2018-07-10 04:22] LABS: Troponin I 0.08 ng/mL (0.00-0.06)
[2018-07-10] MEDS: VANCOMYCIN 1,000 MG in Normal Saline 250 ML 166.6666 MG IVPB (04:54)
--- NOTE | 2018-07-10 05:31 | HPE_ITS ---
Date of service: 07/10/18 Time of Service: 05:31 Assessment and Plan (1) SOB (shortness of breath): Current visit: Yes Status: Acute Flash pulmonary edema, likely on as an ischemic basis patient is oxygenating satisfactorily at present and hemodynamics are acceptable we will monitor diuresis and add topical nitroglycerin, continue high flow oxygen as is regarding the coronary issues unclear whether this is transient ischemia or an ongoing lesion. Certainly patient does not seem to be having any pain. Will give full dose aspirin, continue Plavix and beta-ras will also start heparin. I do not see a strong case here for pneumonia and I would not continue antibiotics beyond what patient has received here in the emergency room. Advanced directives reviewed with family and confirmed that patient is DNR/DNI History of Present Illness Patient is an 82-year-old female who was here last month with non-STEMI, pulmonary edema and concurrent pneumonia. She was transferred to [facility] but did not have any intervention for the coronary syndrome. She comes to the emergency room this morning with acute onset of shortness of breath and orthopnea. In the emergency room initial O2 saturations in the 70s, chest x-ray shows pulmonary edema, BNP greater than 3000 and initial troponin 0.08.. She was given 40 mg of IV Lasix and placed on high flow nasal cannula and was feeling significantly better there is no report of chika chest pain. Note also that patient was given dose of vancomycin and Zosyn. There had been report of some cough a few days ago and family thought patient might be developing a cold. However note that tonight's event were complete and sudden change in status Above history was obtained from family and emergency room. Patient has dementia and is unable to provide any further history Past medical history: Coronary artery disease status post non-STEMI, dementia, carotid stenosis, hyperlipidemia, status post cholecystectomy, status post hysterectomy Allergies none known Medications aspirin 81 daily Plavix 75 daily Lipitor 40 daily Aricept 5 daily Neurontin 300 twice daily Lopressor 25 twice daily Zoloft 25 daily Seroquel Physical exam: Patient is sitting up in the stretcher in no distress blood pressure 105/55 pulse 103 respirations 36 O2 sat 95% on high flow oxygen temp 36.1. HEENT is unremarkable neck supple lungs diffuse rales heart obscured by respirations but regular rate and rhythm abdomen is soft and nontender pelvic and rectal exams deferred extremities without edema pulses 2+ and equal neurological patient is oriented x1 and moves all 4 extremities Laboratory White count is 11.8 hematocrit 45 platelets 277 sodium 135 potassium 4.1 chloride 99 bicarb 24 BUN 11 creatinine 1.2 BNP is 3275 troponin is 0.08 EKG shows poor baseline but sinus tachycardia and poor R wave progression which is more pronounced than last month. Chest x-ray shows gross pulmonary edema Review of Systems Review of Systems All systems reviewed & are unremarkable except as noted in HPI and below PFSH Medical History Carotid artery stenosis (Chronic) Hyperlipidemia (Chronic) Dementia (Chronic) Dysphagia (Chronic) History of esophageal dilatation (Chronic) Surgical History H/O: hysterectomy (Inactive) S/P cholecystectomy (Inactive) Social History Smoking/Tobacco Use Status: Never Drug use: Never Details: unable to obtain r/t pt condition Additional Social history: unable to assess privately Meds Home Medications Medication Instructions Recorded Confirmed Type donepezil 5 mg PO DAILY 06/23/15 07/10/18 History sertraline 25 mg PO DAILY 06/23/15 07/10/18 History aspirin 81 mg PO DAILY 01/15/18 07/10/18 History albuterol sulfate 2.5 mg UPD Q4H PRN PRN #0 ml 06/11/18 07/10/18 Rx atorvastatin [Lipitor] 40 mg PO QPM #0 tab 06/11/18 07/10/18 Rx clopidogrel [Plavix] 75 mg PO DAILY #7 tab 06/11/18 07/10/18 Rx gabapentin [Neurontin] 300 mg PO BID 07/10/18 07/10/18 History metoprolol tartrate 25 mg PO BID 07/10/18 07/10/18 History quetiapine 0.5 mg PO PRN PRN 07/10/18 07/10/18 History quetiapine 1 mg PO HS 07/10/18 07/10/18 History Allergies Allergy/AdvReac Type Severity Reaction Status Date / Time No Known Allergies Allergy Unverified 07/10/18 05:13 Exam Narrative Exam Narrative: per HPI Results Labs : 07/10/18 03:58 07/10/18 03:58 Laboratory Results - last 24 hr 07/10/18 07/10/18 07/10/18 03:58 03:58 03:58 WBC 11.17 H RBC 4.64 Hgb 14.4 Hct 45.2 MCV 97.4 H MCH 31.0 MCHC 31.9 L RDW 15.0 H Plt Count 277 MPV 10.5 Immature Gran % 0.3 Neutrophils % 69.2 Lymphocytes % 22.4 Monocytes % 4.4 Eosinophils % 3.1 Basophils % 0.6 Absolute Neutrophils 7.73 H Absolute Lymphocytes 2.50 Absolute Monocytes 0.49 Absolute Eosinophils 0.35 Absolute Basophils 0.07 PT 9.7 INR 1.0 APTT 22.7 Sodium 135 L Potassium 4.1 Chloride 98 Carbon Dioxide 24.8 Anion Gap 12.2 H BUN 11 Creatinine 1.22 H Estimated GFR/1.73 m2 42.41 Glucose 329 H Calcium 8.9 Magnesium 2.0 Total Bilirubin 0.8 AST 19 ALT 15 Alkaline Phosphatase 106 Troponin I 0.08 H* NT-Pro-B Natriuret Pep 3275 H Total Protein 8.3 H Albumin 4.0 Last Vital Signs Temp 36.1 C L 07/10/18 03:50 Pulse 125 H 07/10/18 04:30 Resp 24 07/10/18 04:40 BP 115/62 07/10/18 04:30 Pulse Ox 93 L 07/10/18 04:40
[2018-07-10] MEDS: Aspirin 325 MG TAB PO (06:47)
[2018-07-10] MEDS: Gabapentin 300 MG CAP PO ×2 (08:00→19:35)
[2018-07-10] MEDS: Clopidogrel 75 MG TAB PO (08:00)
[2018-07-10] MEDS: Aspirin 81 MG CHEW PO (08:00)
[2018-07-10] MEDS: Sertraline 25 MG TAB PO (08:00)
[2018-07-10] MEDS: Donepezil 5 MG TAB 10 MG PO (09:22)
[2018-07-10 09:23] LABS: Troponin I 2.55 ng/mL (0.00-0.06)
--- NOTE | 2018-07-10 10:03 | PDOC.CMIN ---
Care Management Initial Assess REASON FOR HOSPITALIZATION:: CHF, Hypoxia PAST MEDICAL HISTORY/PAST SURGICAL HISTORY:: Medical: Carotid artery stenosis, hyperlipidemia, dementia, non-STEMI. Surgical: Hysterectomy, cholecystectomy PREVIOUS FUNCTIONAL STATUS/SOCIAL/FAMILY SUPPORTS:: Lives with her , Darrell Sims, who is also the POA at their home in [place]. They have two daughters who are supportive, Jonna Haynes ([phone]) and Abel Salas ([phone]). Last hospital admission was 06/10/17-06/11/17 for NSTEMI with transfer to [facility]. CURRENT FUNCTIONAL STATUS:: Lying in bed. Appears comfortable and responds to voice by opening her eyes and asking if she can get up and go now. Bipap in use at this time. and daughter, Jonna, are at her bedside. ADVANCE DIRECTIVES:: On file - Daughter Abel Salas named as agent. Has patient been provided with information about the portal?: No Did the patient sign up for the portal?: No CODE STATUS:: DNR/DNI INSURANCE COVERAGE / FINANCIAL ISSUES:: Medicare. [employer] CURRENT HOME/COMMUNITY SERVICES/EQUIPMENT:: HH Nurse 2x week PRIMARY CARE PHYSICIAN:: [facility]: Kal Wilson MD POTENTIAL DISCHARGE NEEDS:: Increased HH services, FU appt with PCP PATIENT/FAMILY EDUCATION NEEDS:: Discharge Instructions ANTICIPATED BARRIERS TO DISCHARGE:: None identified TRANSPORTATION:: Family PLAN:: Lachelle will return home when medically cleared for discharge. Resume current HH services and evaluae for need to increase. Family will transport Readmission - Within the Past 30 Days Yes or No: Y - Date of First Admission Date of 1st Admission: 06/10/18 - Date of this Admission Date of Admission: 07/10/18 This admission was: Through ED - If the patient had a VNA ordered Did the patient have a VNA order?: Yes Did you call the VNA before you came?: Yes Did the VNA tell you to come to the hospital?: No Do you know if the VNA called your physician?: No - ED visits How many ED visits in the past 12 months: 2 - Assessment for Readmission Summary of readmission circumstances, based upon interviews: Sudden onset - Flash pulmonary edema
--- NOTE | 2018-07-10 11:05 | DI.RAD_ITS ---
SYMPTOM/DIAGNOSIS: CHF, PNEUMONIA PORTABLE AP CHEST at 1107 am: Comparison is made with examination from earlier in the day. Heart size and pulmonary vasculature appear stable and within normal limits. Since the prior examination, there has been significant improvement in the aeration of the lungs with some residual infiltrates seen predominantly in the left lung base. This may represent pulmonary edema or pneumonia.
--- NOTE | 2018-07-10 11:19 | PHARADMIT ---
Admission Pharmacy Clinical Review CHF,HYPOXIA Code Status DNR/DNI Current Weight 54.6 kg Renally Cleared and Narrow Therapeutic Index Meds CRCL ~32ML/MIN QTc Value / Action Taken 484 QUETIAPINE, SERTALINE-CR DONEPEZIL-KR MEDS ARE FROM HOME MED LIST BP Control, Fever 88/46 AFEBRILE Electrolytes reviewed Na 135 DVT Prophylaxis on heparin drip Opiate Usage / Scheduled Bowel Regimen Ordered no/no Plt/SCr for Heparin / Enoxaparin 277/1.22 INR for Warfarin 1.0 H/H stable, WBC/Bands 14.4/45.2 wbc 11.17 Antibiotic appropriateness vanco and pip/tazo Cultures and Sensitivities BC PENDING, FLU NEG Surgical ABX d/c within 24 hr NA DM control / Insulin Dosing NA Heart Failure (Check EF%) (JOANNE's, B-Block, Diuretics) IV to PO Switch Home Meds Reviewed Home Meds Not Ordered NO Comments
--- NOTE | 2018-07-10 11:42 | DI.VRAD_ITS ---
EXAM: XR Chest, 1 View EXAM DATE/TIME: 07/10/2018 10:42 AM CLINICAL HISTORY: 82 years old, female; Signs and symptoms; Other: Chf, pna; Patient HX: Best images obtained due to patient condition, unable to remove leads icu PT. TECHNIQUE: XR of the chest, 1 view. COMPARISON: SC XR PORTABLE CHEST AP 07/10/2018 3:43 AM FINDINGS: Lungs: There is mildly improved aeration, with mildly decreased hazy and patchy opacities, left basilar predominant, suggesting edema and/or pneumonia. Pleural space: Unremarkable. No pleural effusion. No pneumothorax. Heart/Mediastinum: The cardiomediastinal silhouette is fairly stable in appearance. Bones/joints: Degenerative changes again involve the spine. IMPRESSION: Mild improved aeration as compared with earlier the same day, with opacities again suggesting edema and/or pneumonia. Dictated and Authenticated by: Alvin Donaldson MD. Ordering:ENDER Paris MD
[2018-07-10 13:39] LABS: Troponin I 2.42 ng/mL (0.00-0.06)
--- NOTE | 2018-07-10 13:42 | INITIAL_ITS ---
Care Management Initial Assess REASON FOR HOSPITALIZATION:: CHF, Hypoxia PAST MEDICAL HISTORY/PAST SURGICAL HISTORY:: Medical: Carotid artery stenosis, hyperlipidemia, dementia, non-STEMI. Surgical: Hysterectomy, cholecystectomy PREVIOUS FUNCTIONAL STATUS/SOCIAL/FAMILY SUPPORTS:: Lives with her , Darrell Sims, who is also the POA at their home in [place]. They have two daughters who are supportive, Jonna Haynes ([phone]) and Abel Salas ([phone]). Last hospital admission was 06/10/17-06/11/17 for NSTEMI with transfer to [facility] [place]. CURRENT FUNCTIONAL STATUS:: Lying in bed. Appears comfortable and responds to voice by opening her eyes and asking if she can get up and go now. Bipap in use at this time. and daughter, Jonna, are at her bedside. ADVANCE DIRECTIVES:: On file - Daughter Abel Salas named as agent. Has patient been provided with information about the portal?: No Did the patient sign up for the portal?: No CODE STATUS:: DNR/DNI INSURANCE COVERAGE / FINANCIAL ISSUES:: Medicare. [employer] CURRENT HOME/COMMUNITY SERVICES/EQUIPMENT:: HH Nurse 2x week PRIMARY CARE PHYSICIAN:: [facility]: Kal Wilson MD POTENTIAL DISCHARGE NEEDS:: Increased HH services, FU appt with PCP PATIENT/FAMILY EDUCATION NEEDS:: Discharge Instructions ANTICIPATED BARRIERS TO DISCHARGE:: None identified TRANSPORTATION:: Family PLAN:: Lachelle will return home when medically cleared for discharge. Resume current HH services and evaluae for need to increase. Family will transport Readmission - Within the Past 30 Days Yes or No: Y - Date of First Admission Date of 1st Admission: 06/10/18 - Date of this Admission Date of Admission: 07/10/18 This admission was: Through ED - If the patient had a VNA ordered Did the patient have a VNA order?: Yes Did you call the VNA before you came?: Yes Did the VNA tell you to come to the hospital?: No Do you know if the VNA called your physician?: No - ED visits How many ED visits in the past 12 months: 2 - Assessment for Readmission Summary of readmission circumstances, based upon interviews: Sudden onset - Flash pulmonary edema
[2018-07-10 14:18] LABS: PTT Activated 45.9 sec (21.0-31.4)
[2018-07-10] MEDS: Metoprolol 25 MG TAB PO (15:44)
[2018-07-10] MEDS: Furosemide 20 MG/2 ML VIAL IVP (15:44)
[2018-07-10] MEDS: Atorvastatin 40 MG TAB PO (19:35)
[2018-07-10] MEDS: QUEtiapine 25 MG TAB PO (20:33)
[2018-07-10 21:27] LABS: PTT Activated 33.2 sec (21.0-31.4)
[2018-07-10 21:38] LABS: Troponin I 1.35 ng/mL (0.00-0.06)
[2018-07-11] VITALS (25 sets, daily range): BP systolic 82–129; BP diastolic 34–67; PULSE 70–103; RESP 17–27; TEMP 36–37; O2SAT 88–98
[2018-07-11] MEDS: Normal Saline Flush 10 ML SYR IVP (00:31)
[2018-07-11] MEDS: Metoprolol 25 MG TAB PO ×2 (00:35→16:19)
[2018-07-11] MEDS: QUEtiapine 25 MG TAB PO ×2 (00:45→21:55)
[2018-07-11] MEDS: PIPERACILLIN/TAZO 3.375 GM in Normal Saline 50 ML IVPB ×3 (03:06→20:21)
[2018-07-11 04:20] LABS: Abs Immature Grans 0.01 k/cumm (0.0-0.09); Absolute Basophil Count 0.05 k/cumm (0.0-0.2); Absolute Eosinophil Count 0.18 k/cumm (0.0-0.7); Absolute Lymphocyte Count 1.12 k/cumm (1.2-3.4); Absolute Monocyte Count 0.47 k/cumm (0.11-0.7); Absolute Neutrophil Count 2.88 k/cumm (1.2-6.7); Basophils % 1.1; Eosinophils % 3.8; HCT 35.1 % (36.0-46.0); HGB 11.5 g/dL (12.0-15.5); Immature Grans % 0.2; Lymphocytes % 23.8; Mean Corp. HGB Concentration 32.8 g/dL (32.0-36.0); Mean Corpuscular Hemoglobin 31.4 pg (27.0-33.0); Mean Corpuscular Volume 95.9 fL (80-95); Neutrophils % 61.1; Platelet Count 161 x1000/uL (130-400); RBC 3.66 m/cumm (4.00-5.20); RBC Distribution Width 14.8 % (11.7-14.6); White Blood Cell Count 4.71 k/cumm (4.4-10.8)
[2018-07-11 04:26] LABS: Anion Gap 5.3 mmol/L (3-11); BUN 17 mg/dL (7-18); CO2 30.7 mmol/L (21.0-32.0); Calcium 8.3 mg/dL (8.5-10.1); Chloride 99 mmol/L (98-107); Estimated GFR 47.79 (mL/min/1.73m2); Glucose 115 mg/dL (70-100); Magnesium 1.7 mg/dL (1.8-2.4); Potassium 3.7 mmol/L (3.5-5.1); Sodium 135 mmol/L (136-145)
[2018-07-11] MEDS: Sertraline 25 MG TAB PO (08:43)
[2018-07-11] MEDS: Gabapentin 300 MG CAP PO ×2 (08:43→19:36)
[2018-07-11] MEDS: Donepezil 5 MG TAB 10 MG PO (08:43)
[2018-07-11] MEDS: Aspirin 81 MG CHEW PO (08:43)
[2018-07-11] MEDS: Clopidogrel 75 MG TAB PO (08:43)
[2018-07-11] MEDS: Furosemide 40 MG TAB PO (09:41)
[2018-07-11] MEDS: Magnesium Oxide 400 MG TAB PO (09:41)
[2018-07-11] MEDS: POTASSIUM CHLORIDE 20 MEQ, POTASSIUM CHLORIDE 10 MEQ 30 MEQ PO (09:41)
[2018-07-11 09:50] LABS: Troponin I 0.93 ng/mL (0.00-0.06)
--- NOTE | 2018-07-11 09:52 | PDOC.CMIN ---
Care Management Initial Assess REASON FOR HOSPITALIZATION:: CHF, Hypoxia PAST MEDICAL HISTORY/PAST SURGICAL HISTORY:: CHF, Bilat PE, Sepsis, respiratory failure with hypoxia, atypical chest pain, eczema, mild cognitive impairment, carotid artery stenosis, hyperlipidemia, dysphagia, essential tremor, osteoarthritis of hands, NSTEMI, Alzheimer's disease, dementia, hx of esophageal dilatation, hysterectomy, cholecystectomy PREVIOUS FUNCTIONAL STATUS/SOCIAL/FAMILY SUPPORTS:: Lachelle resides with her , Darrell in [place], [place]. The couple has two adult daughters, Jonna resides in [facility] in [place], [place].
--- NOTE | 2018-07-11 10:04 | PDOC.CMPRO ---
Care Management Progress Note S/O: Lachelle was lying in bed, surrounded by family when CM attempted to meet with her. She will have an ECHO today as well as a speech consult to inform next steps in treatment. CM will continue to follow. A: 82 year old female admitted to [facility] 07/10/18 for CHF, Hypoxia P: Lachelle will return home when ready per MD. She will resume VNA supports RN 2x/wk with anticipated additional orders for PT/OT as well. CM will continue to follow and support discharge planning considerations.
--- NOTE | 2018-07-11 10:44 | EVALE_ITS ---
Date of service: 07/11/18 Time of Service: 09:00 Speech Therapy Evaluation Note: REFERRING PROVIDER: Dr. Cowart BACKGROUND This is an 82 year old right-handed female who presented to the ED from home on 07/10/18 with sudden onset dyspnea and orthopnea. This is after having had an admission, roughly a month ago, for non-STEMI, pulmonary edema and concurrent pneumonia. She was admitted this time to the ICU for tx of pulmonary edema and hypoxia. Two CXRs were done on the day of admission. The first showed moderate bilateral (B) infiltrate or edema. The second showed decreased opacities, left basilar predominant, suggestive of edema &/or pneumonia. A swallow evaluation was requested. The patient (pt) is unable to give additional background information due to her dementia. However, both her daughter, Jonna, and her , Darrell, state that she has a history of dysphagia in that, several years ago, she complained of foods getting stuck at the level of the UES. She had two esophageal dilitation procedures at two different points in time. Jonna says that with the onset of more significant dementia, there has been an absence of complaints of this nature. Jonna & Darrell both state that she has been taking what, by description, are Thin liquids, a Dysphagia Advanced diet with chopped meats and whole pills with a liquid wash. Jonna reports occasional difficulty with posterior oral transit of the pills. PMH: dementia, CAD s/p non-STEMI, carotid stenosis, hyperlipidemia, h/o dysphagia OBJECTIVE Nursing reports: - T: 36.7 - O2 sat: 93% on RA - LS: CTA-B in the presence of ABX - Pt is currently on Thin liquids, a Regular consistency diet, and whole pills with a liquid wash. - Toleration of some of this morning's breakfast (milk, muffin). - Toleration of whole pills with a liquid wash. The pt is sitting up in bed, awake. She greets me with a delayed direct eye contact and offers an intelligible verbal greeting. She is unable to answer orientation questions, saying I don't know anything. She is unable to follow multi-step directions. Oral Sensorimotor Exam The pt is unable to participate in some of the exam due to poor following of directions but the following is noted. She has a full upper denture (FUD) and a partial lower denture. The partial appears to fit adequately but the FUD is loose. Jonna states that her mother does not use denture adhesive. Motorically, the smile is symmetrical. No lingual deviation on protrusion is seen in a setting of good excursion. Lingual lateralization is WNL-B as are lingual rapid alternating movements. Lingual strength is WNL-B. Velopharyngeal elevation is strong and symmetrical. Volitional cough is strong. Speech intelligibility to this unfamiliar listener in the presence of mild background noise is 100%. Vocal quality and intensity are both WNL. An occasional no nproductive cough is noted throughout the visit. Swallowing - Honey-thick liquid: Good bolus control and posterior oral transit (POT); no chika signs/symptoms (s/s) of aspiration/penetration (A/P); oral clearance 100%; no oral escape. These results are true for both single and consecutive swallows by cup. - [place]-thick liquid: Results are the same as for Honey-thick liquid. These results are true for both single and consecutive swallows by both cup and straw. - Thin liquid: Results are the same as for [place]-thick liquid. - Puree food: Good bolus control and linguopalatal bolus compression; POT is WNL; no cihka s/s A/P; oral clearance 100%; no oral escape. - Mechanically Altered food: Pt refused. - Dysphagia Advanced food: Good mastication quality with use of increased mastication time; good bolus control & POT; no chika s/s A/P; oral clearance 100%; no oral escape. - Whole pills: a) small, medium & large-sized pills, taken 1 at a time with a Thin liquid wash: Inconsistent bolus control & POT (lingual pill rolling); no chika s/s A/P; oral clearance 100%; no oral escape. b) large-sized pill in puree: Decreased bolus control & POT; asked pt to spit out, which she did. Nursing readministered dissolved in liquid. Good bolus control & POT; no chika s/s A?P; no oral escape. The pt is observed to self-feed liquid but she shows bilateral upper extremity tremor, making it challenging. The pt is noted to produce occasional burping throughout the visit, some of which appear intentional. INTERPRETATION The pt shows a mild oral-prep dysphagia due to both upper and lower dentures. No clinical signs of a pharyngeal dysphagia are evident. RECOMMENDATIONS 1. Change to: a) a Dysphagia Advanced diet with moistened chopped meats b) whole pills as tolerated, crushed pills in puree or dissolved prn 2. Continue Thin liquids 3. Aided feeding 4. No ST indicated at this time. Thank you for referring this pt. -
[2018-07-11 12:27] LABS: PTT Activated 57.5 sec (21.0-31.4)
--- NOTE | 2018-07-11 12:30 | MERGE_ITS ---
*[facility]* *[facility]* [address] [place] [address] Date of study: 07/11/2018 Transthoracic Echocardiography M-mode, complete 2D, complete spectral Doppler, and color Doppler *STUDY CONCLUSIONS* Summary: 1. Left ventricle: The cavity size was normal. Systolic function was mildly reduced. The estimated ejection fraction was 45-50%. Diffuse hypokinesis. Findings consistent with diastolic dysfunction. Doppler parameters are consistent with high ventricular filling pressure. MAC and MR can interfere with diastolic assessment. 2. Mitral valve: Moderately calcified annulus. There was moderate to severe regurgitation. No prolapse, flail, ruptured chord appreciated. 3. Left atrium: The atrium was severely dilated. 4. Right ventricle: The cavity size was normal. Wall thickness was normal. Systolic function was normal. 5. Pulmonary arteries: Pulmonary systolic pressure was in the range of 20mm Hg to 30mm Hg. 6. Inferior vena cava: The vessel was patent and normal in size. The respirophasic diameter changes were in the normal range (greater than or equal to 50%), consistent with normal central venous pressure. *PATIENT PRESENTATION* Height: 165.1cm ((65in) ) S/D Pressure: 89 / 62 Weight: 51.7kg ((113.8lb) ) BSA: 1.53m^2 Test start time: 12:40 PM. Test stop time: 02:30 PM. CONSULTING Saji Wilson MD PERFORMING Unknown ORDERING Wellington Cowart REFERRING Wellington Cowart PERFORMING [facility] PHARMAC[facility] GENERAL MANAGER RT Efrain (R)([email or web address]) [facility] *PROCEDURE DATA* Procedure information: The patient was identified by two identifiers. This study was interpreted by [facility]. Pertinent images and digital data are archived for permanent storage and are available for subsequent review. Comparison was made to the study of 10/22/2010. Study status: Routine. Transthoracic echocardiography. M-mode, complete 2D, complete spectral Doppler, and color Doppler. A Transthoracic Echocardiogram was performed. Scanning was performed from the parasternal, apical, subcostal, and suprasternal notch acoustic windows. Images were obtained using an [id number] cardiac ultrasound machine. Image quality was adequate. Study completion: The patient tolerated the procedure well. History: PMH: NSTEMI. *CARDIAC ANATOMY* Left ventricle: The cavity size was normal. Systolic function was mildly reduced. The estimated ejection fraction was 45-50%. Diffuse hypokinesis. The tissue Doppler parameters were abnormal. Findings consistent with diastolic dysfunction. Doppler parameters are consistent with high ventricular filling pressure. Aortic valve: Trileaflet. Doppler: There was no stenosis. There was no regurgitation. VTI ratio of LVOT to aortic valve: 0.67. Valve area (VTI): 1.9cm^2. Indexed valve area (VTI): 1.2cm^2/m^2. Peak velocity ratio of LVOT to aortic valve: 0.71. Valve area (Vmax): 2cm^2. Indexed valve area (Vmax): 1.3cm^2/m^2. Mean velocity ratio of LVOT to aortic valve: 0.7. Valve area (Vmean): 2cm^2. Indexed valve area (Vmean): 1.3cm^2/m^2. Mean gradient (S): 3.1mm Hg. Peak gradient (S): 4.5mm Hg. Aorta: Aortic root: The aortic root was normal in size. Ascending aorta: The ascending aorta was normal in size. Mitral valve: Moderately calcified annulus. Doppler: There was no evidence for stenosis. There was moderate to severe regurgitation. Valve area by pressure half-time: 3.7cm^2. Indexed valve area by pressure half-time: 2.4cm^2/m^2. Peak gradient (D): 12.6mm Hg. Left atrium: The atrium was severely dilated. Atrial septum: Poorly visualized. Right ventricle: The cavity size was normal. Wall thickness was normal. Systolic function was normal. Pulmonic valve: Doppler: There was no evidence for stenosis. There was mild regurgitation. Tricuspid valve: Doppler: There was mild regurgitation. Pulmonary artery: Poorly visualized. Pulmonary systolic pressure was in the range of 20mm Hg to 30mm Hg. Right atrium: The atrium was normal in size. Pericardium: There was no pericardial effusion. Systemic veins: Inferior vena cava: Well visualized. The vessel was patent and normal in size. The respirophasic diameter changes were in the normal range (greater than or equal to 50%), consistent with normal central venous pressure. Measurements Left ventricle Value Reference LV ID, ED, PLAX (L) 3.3 cm 3.5 - 6.0 LV ID, ES, PLAX 2.6 cm 2.1 - 4.0 LV PW thickness, ED, PLAX 1.4 cm LV end-diastolic volume, 1-p A2C 39 ml LV ejection fraction, 1-p A2C 50 % LV end-diastolic volume, 1-p A4C 48 ml LV ejection fraction, 1-p A4C 44 % LV e', lateral 0.044 m/sec LV E/e', lateral 40 LV e', medial 0.049 m/sec LV E/e', medial 36 LV e', average 0.046 m/sec LV E/e', average 38 Ventricular septum Value Reference IVS thickness, ED, PLAX 1.4 cm LVOT Value Reference LVOT ID, A-P 1.9 cm LVOT area 2.9 cm^2 LVOT peak velocity, S 0.75 m/sec LVOT mean velocity, S 0.6 m/sec LVOT VTI, S 14.1 cm LVOT peak gradient, S 2.2 mm Hg LVOT mean gradient, S 1.6 mm Hg Stroke volume (SV), LVOT DP 40 ml Stroke index (SV/bsa), LVOT DP 26 ml/m^2 Aortic valve Value Reference Aortic valve peak velocity, S 1.1 m/sec Aortic valve mean velocity, S 0.86 m/sec Aortic valve VTI, S 21.0 cm Aortic mean gradient, S 3.1 mm Hg Aortic peak gradient, S 4.5 mm Hg VTI ratio, LVOT/AV 0.67 Aortic valve area, VTI 1.9 cm^2 Velocity ratio, peak, LVOT/AV 0.71 Aortic valve area, peak velocity 2 cm^2 Velocity ratio, mean, LVOT/AV 0.7 Aortic valve area, mean velocity 2 cm^2 Aortic valve area/bsa, mean velocity 1.3 cm^2/m^2 Aorta Value Reference Aortic root ID, ED 2.9 cm Ascending aorta ID, A-P, S 2.8 cm Left atrium Value Reference LA ID, A-P, ES 3.7 cm LA ID/bsa, A-P (H) 2.4 cm/m^2 <=2.2 LA area, ES, A4C (H) 23.8 cm^2 8.8 - 23.4 LA volume/bsa, ES, 1-p A4C 56 ml/m^2 LA/aortic root ratio 1.3 Mitral valve Value Reference Mitral E-wave peak velocity 1.77 m/sec Mitral A-wave peak velocity 1.23 m/sec Mitral deceleration time 207 ms 150 - 230 Mitral pressure half-time 60 ms Mitral peak gradient, D 12.6 mm Hg Mitral E/A ratio, peak 1.44 Mitral valve area, PHT, DP 3.7 cm^2 Tricuspid valve Value Reference Tricuspid regurg peak velocity 2.3 m/sec Tricuspid peak RV-RA gradient 20.5 mm Hg Right atrium Value Reference RA area, ES, A4C 8.8 cm^2 8.3 - 19.5 Legend: (L) and (H) reddy values outside specified reference range. I have personally reviewed the images and have reviewed and edited the reported findings. Electronically signed by Alvin Robert MD 07/11/2018 18:27
[2018-07-11] MEDS: Haloperidol 1 MG TAB 0.5 MG PO (13:01)
[2018-07-11] MEDS: QUEtiapine 25 MG TAB 12.5 MG PO ×2 (14:00→19:36)
--- NOTE | 2018-07-11 14:10 | PGE_ITS ---
Date of Service Date of service: 07/11/18 Time of Service: 14:10 Assessment and Plan (1) Acute respiratory failure with hypoxia and hypercapnia: Current visit: No Status: Acute Current acute respiratory failure with hypoxia seems to mirror prior episode which occurred last month. Prior episode was deemed secondary to Pneumonia, with Pulmonary Edema occuring in setting of demand ischemia/NSTEMI. Patient has been diuresed, initiated on antibiotic therapy, and treated for possible NSTEMI. Currently appears vastly improved subjectively and clinically. (2) Elevated troponin: Current visit: Yes Status: Acute Repeat elevation in troponin similiar in circumstances as last month she was transferred to [facility]. At that time her troponin elevated to a peak of 8.49, with a TTE that was essentially normal and without wall motion abnormalities. Patient's symptoms were deemed secondary to demand in the setting of infection and respiratory status. Patient's current troponin peaked at 2.55 prior to decreasing nicely, last [facility] ked at 0.93 this morning. Unsure of the etiology for her current troponin spill - chest x-ray officially interpreted as either pulmonary edema or pneumonia, but patient was afebrile and without a significant leukocytosis (mildly elevated white blood count at time of admission). Unsure if these findings represent a cardiac origin or infectious etiology. For now continue treatment of potential pneumonia with HCAP coverage. Patient has been diuresed nicely, and received 1 additional dose of Lasix this morning. Continue high potency statin, DAPT with daily aspirin and clopidogrel, beta-ras therapy, and a heparin drip for approximately 48 hours. Echo obtained with results pending at this time - would like to have [facility] contacted when results of this test are available, and inquire regarding a potential diagnostic LHC if deemed appropriate. (3) Multifocal pneumonia: Current visit: No Status: Acute Treatment as above. Currently on day #2 of antibiotic therapy with vancomycin and PIP-Tazo. (4) Alzheimer disease: Current visit: No Status: Chronic Noted dementia, with intermittent periods of worsening confusion and acute delirium. Mrs. Sims reacted poorly to administration of benzodiazepine during her last visit, becoming quite obtunded and requiring reversal with flumazenil as well as rescue BiPAP. Upon presentation to [facility] she was found to be agitated, and required a Precedex infusion and four-point restraints. She later went on to require clonidine, as well as Haldol and gabapentin. Her QT prolonged and Haldol needed to be discontinued, with Seroquel being started. At time of her admission here she remains on Seroquel and gabapentin as a QTc sparing adjunct, and remains on her baseline doses of donepezil and SSRI. Current agitation appears to be mild. Very low-dose Haldol is ordered on a as needed basis, and patient remains on telemetry for QT monitoring. Will monitor symptoms closely. (5) DVT prophylaxis: Current visit: Yes Status: Acute Currently on anticoagulation with Heparin gtt. (6) Advance directive on file: Current visit: Yes Status: Acute DNR/DNI. Subjective Interval history since last seen: 82 year old woman with a prior history of NSTEMI in setting of acute illness, admitted from [facility] Emergency Department on 07/11 with a diagnosis of Pulmonary Edema and elevated Troponin. Mrs. Sims has a prior history of dementia, Dyslipidemia, GERD, Carotid Artery STenosis, and NSVT by records. The patient was seen here at [facility] in early May, and transferred to [facility] for acute hypoxic respiratory failure and NSTEMI, in the context of a multifocal pulmonary infiltrates (assumed to be pneumonia) and pulmonary edema. The patient was treated with antibiotic therapy and BiPAP, and diuresed intermittently. She was also noted to have an elevation in her troponin, peaked at 8.49. Her ECHO was normal and showed no wall motion abnormalities, and as such it was thought likely due to demand in the setting of infection and hypoxia, and a Heart Catheterization was not sought. She also experienced acute delirium while hospitalized. She was discharged in stable condition, but presented to the ED with an acute onset of dyspnea. She was noted to be hypoxic, with an elevated BNP and troponin, and CXR showing bilateral pulmonary infiltrates thought to represent edema versus pneumonia. She was admitted for further evaluation and treatment. Following admission the patient's troponin tonio to a peak of 2.55. Her cardiac regimen was optimized, she was anticoagulated, and diuresed. She feels vastly improved and no longer oxygen requiring. Repeat CXR was improved. The family had initially indicated no interest in catheterization if deemed appropriate, but is insistent on 'trying everything'. No overnight events reported. Patient remains confused, with intermittently worsening delirium. Remains afebrile. Exam Narrative Exam Narrative: General: Patient appears comfortable, Awake and Alert, NAD. Not agitated at time of exam. Neck: Supple CV: Regular, nontachycardic. Pulmonary: Minimal bibasilar crackles, no wheezing or rhonchi Abdomen: + Bowel Sounds, soft, nontender, nondistended Vascular: No lower extremity edema Objective Objective Clinical Data: Abnormal lab results 07/10/18 07/10/18 07/10/18 Range/Units 13:37 21:05 21:05 RBC (4.00-5.20) m/cumm Hgb (12.0-15.5) g/dL Hct (36.0-46.0) % MCV (80-95) fL RDW (11.7-14.6) % Absolute Lymphocytes (1.2-3.4) k/cumm APTT 45.9 H D 33.2 H D (21.0-31.4) sec Sodium (136-145) mmol/L Creatinine (0.55-1.02) mg/dL Glucose (70-100) mg/dL Calcium (8.5-10.1) mg/dL Magnesium (1.8-2.4) mg/dL Troponin I 1.35 H* (0.00-0.06) ng/mL 07/11/18 07/11/18 07/11/18 Range/Units 04:12 04:12 04:12 RBC 3.66 L (4.00-5.20) m/cumm Hgb 11.5 L D (12.0-15.5) g/dL Hct 35.1 L D (36.0-46.0) % MCV 95.9 H (80-95) fL RDW 14.8 H (11.7-14.6) % Absolute Lymphocytes 1.12 L (1.2-3.4) k/cumm APTT 37.0 H (21.0-31.4) sec Sodium 135 L (136-145) mmol/L Creatinine 1.10 H (0.55-1.02) mg/dL Glucose 115 H D (70-100) mg/dL Calcium 8.3 L (8.5-10.1) mg/dL Magnesium 1.7 L (1.8-2.4) mg/dL Troponin I 0.93 H* (0.00-0.06) ng/mL 07/11/18 Range/Units 11:47 RBC (4.00-5.20) m/cumm Hgb (12.0-15.5) g/dL Hct (36.0-46.0) % MCV (80-95) fL RDW (11.7-14.6) % Absolute Lymphocytes (1.2-3.4) k/cumm APTT 57.5 H D (21.0-31.4) sec Sodium (136-145) mmol/L Creatinine (0.55-1.02) mg/dL Glucose (70-100) mg/dL Calcium (8.5-10.1) mg/dL Magnesium (1.8-2.4) mg/dL Troponin I (0.00-0.06) ng/mL Vital Signs Temperature 37 C 07/11/18 03:14 Temperature Source Temporal Artery Scan 07/11/18 03:14 Pulse 76 07/11/18 12:13 Pulse 84 07/11/18 12:13 Respiratory Rate 20 07/11/18 12:13 Respiratory Effort 07/11/18 03:14 Respiratory Depth Normal 07/11/18 03:14 Respiratory Pattern Normal 07/11/18 03:14 Blood Pressure 106/53 L 07/11/18 12:13 Blood Pressure Mean 65 07/11/18 12:13 Blood Pressure Position Supine 07/11/18 03:14 Pulse Oximetry 96 07/11/18 12:13 Oxygen Delivery Method Nasal Cannula 07/11/18 03:14 Oxygen Flow Rate 3 07/11/18 03:14 Fraction of Inspired Oxygen (FIO2) 35 07/10/18 09:40 Pain Level 0 07/11/18 03:14 Comment 07/10/18 03:50 Intake & Output 07/10/18 07/11/18 07/11/18 23:59 11:59 23:59 Intake Total 1902.192 / 2272.192 344.692 / 377.275 32.583 / 377.275 Output Total 1800 / 2200 600 / 600 Balance 102.192 / 72.192 -255.308 / -222.725 32.583 / -222.725 Weight 52.1 kg Intake: IV 702.192 / 772.192 194.692 / 227.275 32.583 / 227.275 Oral 1200 / 1500 150 / 150 Output: Urine 1800 / 2200 600 / 600 Other: Urine Color Pale Pale Urine Appearance Clear Clear Urine Odor None None Comment Pt was incont of a large amount of urine s/p stress incont with a coughing spell. Pt oob to bsc to void clear yellow urine. Skin care done by Pt and RN. Stool Occult Blood Negative Negative Stool Size Moderate Moderate Stool Characteristics Soft Soft Formed Brown Voiding Methods Bedside Commode Bedside Commode Laboratory Results WBC 4.71 k/cumm (4.4-10.8) D 07/11/18 04:12 RBC 3.66 m/cumm (4.00-5.20) L 07/11/18 04:12 Hgb 11.5 g/dL (12.0-15.5) L D 07/11/18 04:12 Hct 35.1 % (36.0-46.0) L D 07/11/18 04:12 MCV 95.9 fL (80-95) H 07/11/18 04:12 MCH 31.4 pg (27.0-33.0) 07/11/18 04:12 MCHC 32.8 g/dL (32.0-36.0) 07/11/18 04:12 RDW 14.8 % (11.7-14.6) H 07/11/18 04:12 Plt Count 161 x1000/uL (130-400) D 07/11/18 04:12 MPV 10.0 fL (8.0-11.0) 07/11/18 04:12 Immature Gran % 0.2 07/11/18 04:12 Neutrophils % 61.1 07/11/18 04:12 Lymphocytes % 23.8 07/11/18 04:12 Monocytes % 10.0 07/11/18 04:12 Eosinophils % 3.8 07/11/18 04:12 Basophils % 1.1 07/11/18 04:12 Absolute Neutrophils 2.88 k/cumm (1.2-6.7) 07/11/18 04:12 Absolute Lymphocytes 1.12 k/cumm (1.2-3.4) L 07/11/18 04:12 Absolute Monocytes 0.47 k/cumm (0.11-0.7) 07/11/18 04:12 Absolute Eosinophils 0.18 k/cumm (0.0-0.7) 07/11/18 04:12 Absolute Basophils 0.05 k/cumm (0.0-0.2) 07/11/18 04:12 PT 9.7 sec (9.3-11.0) 07/10/18 03:58 INR 1.0 (0.9-1.1) 07/10/18 03:58 APTT 57.5 sec (21.0-31.4) H D 07/11/18 11:47 Sodium 135 mmol/L (136-145) L 07/11/18 04:12 Potassium 3.7 mmol/L (3.5-5.1) 07/11/18 04:12 Chloride 99 mmol/L (98-107) 07/11/18 04:12 Carbon Dioxide 30.7 mmol/L (21.0-32.0) 07/11/18 04:12 Anion Gap 5.3 mmol/L (3-11) 07/11/18 04:12 BUN 17 mg/dL (7-18) D 07/11/18 04:12 Creatinine 1.10 mg/dL (0.55-1.02) H 07/11/18 04:12 Estimated GFR/1.73 m2 47.79 (mL/min/1.73m2) 07/11/18 04:12 Glucose 115 mg/dL (70-100) H D 07/11/18 04:12 Calcium 8.3 mg/dL (8.5-10.1) L 07/11/18 04:12 Magnesium 1.7 mg/dL (1.8-2.4) L 07/11/18 04:12 Total Bilirubin 0.8 mg/dL (0.2-1.0) 07/10/18 03:58 AST 19 U/L (15-37) 07/10/18 03:58 ALT 15 U/L (12-78) 07/10/18 03:58 Alkaline Phosphatase 106 U/L (46-116) 07/10/18 03:58 Troponin I 0.93 ng/mL (0.00-0.06) H* 07/11/18 04:12 NT-Pro-B Natriuret Pep 3275 pg/mL (-299) H 07/10/18 03:58 Total Protein 8.3 g/dL (6.4-8.2) H 07/10/18 03:58 Albumin 4.0 g/dL (3.4-5.0) 07/10/18 03:58
--- NOTE | 2018-07-11 14:24 | NUR.NOTE ---
Nursing Note: Patient mental status has changed from cooperative and pleasant to agitated and resistant to care since 1300, at end of echocardiogram procedure; 0.5mg Haldol PO administered at 1300 with no result; 12.5mg PO seroquel administered at 1400; patient changing positions frequently; family and RN in room to try to calm patient. MD visited ICU at 1410 and updated of patient status.
--- NOTE | 2018-07-11 14:59 | CHAPLAIN ---
Lachelle was visiting with her Darrell and two daughters, Abel and Jonna, when I stopped in. I met Lachelle when she was a patient here about a month ago. At that time she had become very agitated and physical and was later transferred to [facility] after she was stable and more calm. She didn't remember me visiting with her then, but likely doesn't remember much about that day. I spend much of that day with Lachelle and her family. This morning she was very calm and pleasant. Darrell seemed distressed about a tube of lotion for Lachelle that he couldn't find in her room. Jonna and Abel are strong supports for their parents.
[2018-07-11] MEDS: VANCOMYCIN 750 MG in Normal Saline 250 ML 166.667 MG IVPB (16:52)
[2018-07-11] MEDS: Normal Saline 500 ML 20 ML IV (18:26)
[2018-07-11] MEDS: Atorvastatin 40 MG TAB PO (19:36)
[2018-07-12] VITALS (15 sets, daily range): BP systolic 90–141; BP diastolic 43–66; PULSE 73–131; RESP 18–26; TEMP 36.4–36.8; O2SAT 91–97
[2018-07-12] MEDS: PIPERACILLIN/TAZO 3.375 GM in Normal Saline 50 ML IVPB (03:22)
[2018-07-12 06:47] LABS: Abs Immature Grans 0.01 k/cumm (0.0-0.09); Absolute Basophil Count 0.03 k/cumm (0.0-0.2); Absolute Eosinophil Count 0.07 k/cumm (0.0-0.7); Absolute Lymphocyte Count 0.72 k/cumm (1.2-3.4); Absolute Monocyte Count 0.22 k/cumm (0.11-0.7); Basophils % 0.7; Eosinophils % 1.7; HCT 31.9 % (36.0-46.0); HGB 10.4 g/dL (12.0-15.5); Immature Grans % 0.2; Lymphocytes % 17.8; Mean Corp. HGB Concentration 32.6 g/dL (32.0-36.0); Mean Corpuscular Volume 95.2 fL (80-95); Mean Platelet Volume 10.5 fL (8.0-11.0); Monocytes % 5.4; Neutrophils % 74.2; RBC 3.35 m/cumm (4.00-5.20); RBC Distribution Width 14.6 % (11.7-14.6); White Blood Cell Count 4.04 k/cumm (4.4-10.8)
[2018-07-12 06:56] LABS: Anion Gap 8.9 mmol/L (3-11); BUN 13 mg/dL (7-18); CO2 28.1 mmol/L (21.0-32.0); Calcium 8.6 mg/dL (8.5-10.1); Chloride 101 mmol/L (98-107); Glucose 123 mg/dL (70-100); Magnesium 1.9 mg/dL (1.8-2.4); Sodium 138 mmol/L (136-145)
[2018-07-12 07:00] LABS: PTT Activated 47.2 sec (21.0-31.4)
[2018-07-12 07:09] LABS: Diff Comment Diff Reviewed; Platelet Count 150 x1000/uL (130-400)
[2018-07-12 07:10] LABS: Polychromasia Present
[2018-07-12] MEDS: Aspirin 81 MG CHEW PO (09:47)
[2018-07-12] MEDS: Clopidogrel 75 MG TAB PO (09:47)
[2018-07-12] MEDS: Sertraline 25 MG TAB PO (09:47)
[2018-07-12] MEDS: Furosemide 40 MG TAB PO (09:47)
[2018-07-12] MEDS: Gabapentin 300 MG CAP PO (09:48)
[2018-07-12] MEDS: Metoprolol 25 MG TAB PO (09:48)
[2018-07-12] MEDS: VANCOMYCIN 750 MG in Normal Saline 250 ML 166.667 MG IVPB (09:48)
[2018-07-12] MEDS: Donepezil 5 MG TAB 10 MG PO (09:48)
[2018-07-12] MEDS: Normal Saline Flush 10 ML SYR IVP (09:49)
[2018-07-12] MEDS: Pantoprazole 40 MG VIAL IVP (09:49)
[2018-07-12 10:05] LABS: Iron 71 ug/dL (50-175); Total Iron Binding Capacity 223 ug/dL (250-450); Transferrin Sat 32 % (15-50)
[2018-07-12] MEDS: Magnesium Oxide 400 MG TAB PO (10:06)
[2018-07-12] MEDS: QUEtiapine 25 MG TAB 12.5 MG PO (10:30)
[2018-07-12 10:34] LABS: Ferritin 414 ng/mL (8-388); Folate 10.2 ng/mL (8.6-20.0); Vitamin B12 325 pg/mL (193-986)
--- NOTE | 2018-07-12 10:35 | W.PM.DS.N ---
Date of service: 07/12/18 Time of Service: 10:36 DS: Diagnosis Discharge Diagnosis (1) Acute respiratory failure with hypoxia and hypercapnia: Status: Acute (2) Elevated troponin: Status: Acute (3) Multifocal pneumonia: Status: Acute (4) Alzheimer disease: Status: Chronic (5) Advance directive on file: Status: Acute Discharge Plan Disposition Patient Disposition: [facility] Condition: Stable Discharge Details Reason For Visit: CHF, HYPOXIA Admit Date/Time: 07/10/18 04:32 Admit Provider: Eder Solano Attending Provider: Eder Solano Primary Care Provider: Saji Wilson Hospital Course Hospital Course: CC: Dyspnea HPI: 82 year old woman with a prior history of NSTEMI in setting of acute illness last month, admitted from [facility] Emergency Department on 07/10 with a diagnosis of Pulmonary Edema and elevated Troponin. Mrs. Sims has a prior history of dementia, Dyslipidemia, GERD, Carotid Artery STenosis, and NSVT by records. The patient was seen here at [facility] in early May, and transferred to [facility] for acute hypoxic respiratory failure and NSTEMI, in the context of a multifocal pulmonary infiltrates (assumed to be pneumonia) and pulmonary edema. The patient was treated with antibiotic therapy and BiPAP, and diuresed intermittently. She was also noted to have an elevation in her troponin, peaked at 8.49. Her ECHO at [facility] was normal and showed no wall motion abnormalities. As such her troponin leak was thought likely due to demand in the setting of infection and hypoxia, with moderate to severe MR - a Heart Catheterization was not sought. She also experienced acute delirium while hospitalized. She was discharged in stable condition, but presented back to the ED with an acute onset of dyspnea. She was noted to be hypoxic, with an elevated BNP and troponin, and CXR showing bilateral pulmonary infiltrates thought to represent edema versus pneumonia. She was admitted for further evaluation and treatment. Following admission the patient's troponin tonio to a peak of 2.55. Her cardiac regimen was optimized, she was anticoagulated, and diuresed. She feels vastly improved and no longer oxygen requiring. Repeat CXR was improved. Her EKG was worrisome, with ST segments that were elevated across V1-V3, TWI in AVL, and ST segments that were depressed on I and potentially V6.The family had initially indicated no interest in catheterization, and as such she was treated conservatively with rapid improvement clinically. However, yesterday the became insistent on 'trying everything'. An ECHO was obtained showing an EF that appears lower than prior at 45%, with Diastolic Dysfunction, Diffuse hypokinesis, Moderate to severe MR, and severe LAE. Given drop in EF, EKG findings, and now the 's wishes for additional care the patient was accepted and being transferred to [facility] for consideration for a diagnostic LHC with intervention as deemed appropriate. The patient No overnight events reported. Patient remains confused, but not as significantly as prior hospitalization, with intermittently worsening delirium. Remains afebrile. Hospital Course: (1) Acute respiratory failure with hypoxia and hypercapnia: Current acute respiratory failure with hypoxia seems to mirror prior episode which occurred last month. Prior episode was deemed secondary to Pneumonia, with Pulmonary Edema occuring in setting of demand ischemia/NSTEMI. Patient has been diuresed, initiated on antibiotic therapy, and treated for ACS. Currently appears vastly improved subjectively and clinically. (2) Elevated troponin: Repeat elevation in troponin similiar in circumstances as last month she was transferred to [facility]. At that time her troponin elevated to a peak of 8.49, with a TTE that was essentially normal and without wall motion abnormalities. Patient's symptoms were deemed secondary to demand in the setting of infection and respiratory status. Patient's current troponin peaked at 2.55 prior to decreasing nicely, last checked at 0.93 on the morning of 07/11. Chest x-ray officially interpreted as either pulmonary edema or pneumonia, but patient was afebrile and without a significant leukocytosis (mildly elevated white blood count at time of admission). EKG abnormal as previously stated. Current episode likely constitutes a cardiac etiology, but cannot fully rule out infection. For now continue treatment of potential pneumonia with HCAP coverage. Patient has been diuresed nicely, and received 1 additional dose of Lasix yesterday morning. Continue high potency statin, DAPT with daily aspirin and clopidogrel, beta-ras therapy, and a heparin drip that was discontinued this morning after 48 hours. Echo obtained with results as above, with apparent drop in LVEF - For transfer and consideration for LHC and intervention if deemed appropriate. Discussed reversal of DNR/DNI for procedure, and family is accepting of this. (3) Multifocal pneumonia: Treatment as above. Currently on day #3 of antibiotic therapy with vancomycin and PIP-Tazo. (4) Alzheimer disease: Noted dementia, with intermittent periods of worsening confusion and acute delirium. Mrs. Sims reacted poorly to administration of benzodiazepine during her last visit, becoming quite obtunded and requiring reversal with flumazenil as well as rescue BiPAP. Upon presentation to [facility] she was found to be agitated, and required a Precedex infusion and four-point restraints. She later went on to require clonidine, as well as Haldol and gabapentin. Her QT prolonged and Haldol needed to be discontinued, with Seroquel being started. At time of her admission here she remains on Seroquel and gabapentin as a QTc sparing adjunct, and remains on her baseline doses of donepezil and SSRI. Current agitation appears to be mild. Very low-dose Haldol is ordered on a as needed basis, and patient remains on telemetry for QT monitoring. Will monitor symptoms closely. (5) DVT prophylaxis: Anticoagulation with Heparin gtt just discontinued - continue SCDs. (6) Advance directive on file: DNR/DNI. (7) Anemia: Development of anemia while on heparin drip, dropping from 13-14 to 11.5 yesterday, 10.4 this morning. Iron studies this morning with iron 71, TIBC low at 223, and Ferritin of 414. B12 and FA are both normal. Current inpatient medications: 1. Albuterol Neb 2.5 mg 2. Aspirin 81mg daily 3. Atorvastatin 40mg Qpm 4. Clopidogrel 75mg daily 5. Donepezil 10mg daily 6. Furosemide 40mg PO daily 7. Gabapentin 300mg PO BID 8. Metoprolol 25mg PO Q8 9. NTG 0.4mg SL Q5 minutes prn 10. Protonix IV 40mg BID 11. Zosyn 3.375 IV Q8 12.Seroquel 12.5mg BID prn, 25mg QHS 13. Sertraline 25mg daily 14. Vancomycin 750mg IV Q16H Home Meds and New Rx's Prescriptions: Continued donepezil 5 MG tablet 10 mg PO DAILY RF: 0 sertraline 25 MG tablet 25 mg PO DAILY RF: 0 aspirin 81 mg Tablet,Chewable 81 mg PO DAILY RF: 0 atorvastatin [Lipitor] 40 mg Tablet 40 mg PO QPM Qty: 0 RF: 0 albuterol sulfate 2.5 mg /3 mL (0.083 %) Solution For Nebulization 2.5 mg UPD Q4H PRN PRNQty: 0 RF: 0 quetiapine 25 mg Tablet 25 mg PO HS RF: 0 quetiapine 25 mg Tablet 0.5 mg PO PRN PRNRF: 0 gabapentin [Neurontin] 300 mg Capsule 300 mg PO BID RF: 0 metoprolol tartrate 25 mg Tablet 25 mg PO BID RF: 0 Discharge Instructions Activity:: OOB to chair Diet:: NPO as of this morning Discharge Orders Discharge Orders: Discharge Order (Routine); Ordered 07/12/18 Ordered By: Wellington Cowart Exam Narrative Exam Narrative: General: Patient appears comfortable, Awake and Alert, NAD. Not agitated at time of exam. Neck: Supple CV: Regular, nontachycardic. Pulmonary: Minimal bibasilar crackles, no wheezing or rhonchi Abdomen: + Bowel Sounds, soft, nontender, nondistended Vascular: No lower extremity edema DS: Data Vitals/I&O Vitals and I&O: Vital Signs Temperature 36.6 C 07/12/18 04:29 Temperature Source Tympanic 07/12/18 04:29 Pulse 87 07/12/18 05:48 Pulse 89 07/12/18 05:48 Respiratory Rate 25 H 07/12/18 03:44 Respiratory Effort 07/12/18 04:29 Respiratory Depth Normal 07/12/18 04:29 Respiratory Pattern Normal 07/12/18 04:29 Blood Pressure 133/44 L 07/12/18 05:48 Blood Pressure Mean 65 07/12/18 05:48 Blood Pressure Position Supine 07/12/18 04:29 Pulse Oximetry 95 07/12/18 05:58 Oxygen Delivery Method Room Air 07/12/18 05:58 Oxygen Flow Rate 0 07/12/18 05:58 Fraction of Inspired Oxygen (FIO2) 35 07/10/18 09:40 Pain Level 0 07/12/18 04:29 Comment 07/10/18 03:50 Intake & Output 07/11/18 07/11/18 07/12/18 11:59 23:59 11:59 Intake Total 1024.692 / 1847.275 822.583 / 1847.275 50 / 50 Output Total 750 / 1500 750 / 1500 250 / 250 Balance 274.692 / 347.275 72.583 / 347.275 -200 / -200 Weight 52.1 kg 52.9 kg Intake: IV 194.692 / 537.275 342.583 / 537.275 50 / 50 Oral 830 / 1310 480 / 1310 Output: Urine 750 / 1500 750 / 1500 250 / 250 Other: Urine Color Yellow Yellow Straw Urine Appearance Clear Clear Clear Urine Odor None Normal Comment mixed with stool Uses bedside commode Mixed with stool. Stool Occult Blood Negative Negative Stool Size Moderate Moderate Moderate Stool Characteristics Soft Soft Soft Brown Formed Voiding Methods Bedside Commode Bedside Commode Bedside Commode Completed studies during hospitalization [Text1]: Exam(s) a US:US echocardiogram Date of study: 07/11/2018 Transthoracic Echocardiography M-mode, complete 2D, complete spectral Doppler, and color Doppler *STUDY CONCLUSIONS* Summary: 1. Left ventricle: The cavity size was normal. Systolic function was mildly reduced. The estimated ejection fraction was 45-50%. Diffuse hypokinesis. Findings consistent with diastolic dysfunction. Doppler parameters are consistent with high ventricular filling pressure. MAC and MR can interfere with diastolic assessment. 2. Mitral valve: Moderately calcified annulus. There was moderate to severe regurgitation. No prolapse, flail, ruptured chord appreciated. 3. Left atrium: The atrium was severely dilated. 4. Right ventricle: The cavity size was normal. Wall thickness was normal. Systolic function was normal. 5. Pulmonary arteries: Pulmonary systolic pressure was in the range of 20mm Hg to 30mm Hg. 6. Inferior vena cava: The vessel was patent and normal in size. The respirophasic diameter changes were in the normal range (greater than or equal to 50%), consistent with normal central venous pressure. Exam(s) 07/10/2018 a RAD:XR portable chest AP SYMPTOM/DIAGNOSIS: CHF, PNEUMONIA PORTABLE AP CHEST at 1107 am: Comparison is made with examination from earlier in the day. Heart size and pulmonary vasculature appear stable and within normal limits. Since the prior examination, there has been significant improvement in the aeration of the lungs with some residual infiltrates seen predominantly in the left lung base. This may represent pulmonary edema or pneumonia. Exam(s) 07/10/2018 a RAD:XR portable chest AP SYMPTOM/DIAGNOSIS: SOB PORTABLE AP CHEST AT 0345 HOURS: Comparison is made with 06/11/18. The examination is suboptimal. The lung apices and portions of the left hemithorax were coned from view. Heart size appears within normal limits. There do appear to be bilateral pulmonary infiltrates. This may represent edema versus pneumonia. Labs on day of discharge: Labs from last 24 hours 07/12/18 07/12/18 07/12/18 06:25 06:25 06:25 WBC RBC Hgb Hct MCV MCH MCHC RDW Plt Count MPV Immature Gran % Neutrophils % Lymphocytes % Monocytes % Eosinophils % Basophils % Absolute Neutrophils Absolute Lymphocytes Absolute Monocytes Absolute Eosinophils Absolute Basophils Differential Comment RBC Morphology Polychromasia APTT 47.2 H Sodium Potassium Chloride Carbon Dioxide Anion Gap BUN Creatinine Estimated GFR/1.73 m2 Glucose Calcium Magnesium Iron 71 TIBC 223 L Transferrin % Sat 32 Ferritin Pending Vitamin B12 Pending Folate Pending 07/12/18 07/12/18 07/11/18 06:25 06:25 11:47 WBC 4.04 L RBC 3.35 L Hgb 10.4 L Hct 31.9 L MCV 95.2 H MCH 31.0 MCHC 32.6 RDW 14.6 Plt Count 150 MPV 10.5 Immature Gran % 0.2 Neutrophils % 74.2 Lymphocytes % 17.8 Monocytes % 5.4 Eosinophils % 1.7 Basophils % 0.7 Absolute Neutrophils 3.00 Absolute Lymphocytes 0.72 L Absolute Monocytes 0.22 Absolute Eosinophils 0.07 Absolute Basophils 0.03 Differential Comment Diff reviewed RBC Morphology See below Polychromasia Present APTT 57.5 H D Sodium 138 Potassium 4.0 Chloride 101 Carbon Dioxide 28.1 Anion Gap 8.9 BUN 13 Creatinine 0.90 Estimated GFR/1.73 m2 >= 60.00 Glucose 123 H Calcium 8.6 Magnesium 1.9 Iron TIBC Transferrin % Sat Ferritin Vitamin B12 Folate 07/12/18 08:06 Stool Stool Occult Blood (FIFI) - Pending Preliminary micro results at discharge 07/12/18 08:06 Stool Occult Blood (FIFI) - Pending Stool 07/10/18 04:48 Blood Culture - Preliminary Blood NO GROWTH 48 HOURS 07/10/18 04:40 Blood Culture - Preliminary Blood NO GROWTH 48 HOURS [facility] Medical History Advance directive on file (Acute) DVT prophylaxis (Acute) Elevated troponin (Acute) SOB (shortness of breath) (Acute) Multifocal pneumonia (Acute) Bilateral pleural effusion (Acute) Acute CHF (Acute) Sepsis (Acute) Acute respiratory failure with hypoxia and hypercapnia (Acute) Alzheimer disease (Chronic) NSTEMI (non-ST elevated myocardial infarction) (Acute) SOB (shortness of breath) (Acute) Atypical chest pain (Acute 06/23/15) Eczema (Chronic) Mild cognitive impairment (Chronic) Hypotension (Acute 06/23/15) Carotid artery stenosis (Chronic) Hyperlipidemia (Chronic) Dysphagia (Chronic) Essential tremor (Chronic) Osteoarthritis of hands, bilateral (Chronic) Dementia (Chronic) Dysphagia (Chronic) History of esophageal dilatation (Chronic) Surgical History H/O surgical procedure (Chronic) H/O: hysterectomy (Inactive) S/P cholecystectomy (Inactive) Social History Smoking/Tobacco Use Status: Never Drug use: Never Details: unable to obtain r/t pt condition Additional Social history: unable to assess privately
--- NOTE | 2018-07-12 10:54 | DSE_ITS ---
Date of service: 07/12/18 Time of Service: 10:36 DS: Diagnosis Discharge Diagnosis (1) Acute respiratory failure with hypoxia and hypercapnia: Status: Acute (2) Elevated troponin: Status: Acute (3) Multifocal pneumonia: Status: Acute (4) Alzheimer disease: Status: Chronic (5) Advance directive on file: Status: Acute Discharge Plan Disposition Patient Disposition: [facility] Condition: Stable Discharge Details Reason For Visit: CHF, HYPOXIA Admit Date/Time: 07/10/18 04:32 Admit Provider: Eder Solano Attending Provider: Eder Solano Primary Care Provider: Saji Wilson Hospital Course Hospital Course: CC: Dyspnea HPI: 82 year old woman with a prior history of NSTEMI in setting of acute illness last month, admitted from [facility] Emergency Department on 07/10 with a diagnosis of Pulmonary Edema and elevated Troponin. Mrs. Sims has a prior history of dementia, Dyslipidemia, GERD, Carotid Artery STenosis, and NSVT by records. The patient was seen here at [facility] in early May, and transferred to [facility] for acute hypoxic respiratory failure and NSTEMI, in the context of a multifocal pulmonary infiltrates (assumed to be pneumonia) and pulmonary edema. The patient was treated with antibiotic therapy and BiPAP, and diuresed intermittently. She was also noted to have an elevation in her troponin, peaked at 8.49. Her ECHO at [facility] was normal and showed no wall motion abnormalities. As such her troponin leak was thought likely due to demand in the setting of infection and hypoxia, with moderate to severe MR - a Heart Catheterization was not sought. She also experienced acute delirium while hospitalized. She was discharged in stable condition, but presented back to the ED with an acute onset of dyspnea. She was noted to be hypoxic, with an elevated BNP and troponin, and CXR showing bilateral pulmonary infiltrates thought to represent edema versus pneumonia. She was admitted for further evaluation and treatment. Following admission the patient's troponin tonio to a peak of 2.55. Her cardiac regimen was optimized, she was anticoagulated, and diuresed. She feels vastly improved and no longer oxygen requiring. Repeat CXR was improved. Her EKG was worrisome, with ST segments that were elevated across V1-V3, TWI in AVL, and ST segments that were depressed on I and potentially V6.The family had initially indicated no interest in catheterization, and as such she was treated conservatively with rapid improvement clinically. However, yesterday the became insistent on 'trying everything'. An ECHO was obtained showing an EF that appears lower than prior at 45%, with Diastolic Dysfunction, Diffuse hypokinesis, Moderate to severe MR, and severe LAE. Given drop in EF, EKG findings, and now the 's wishes for additional care the patient was accepted and being transferred to [facility] for consideration for a diagnostic LHC with intervention as deemed appropriate. The patient No overnight events reported. Patient remains confused, but not as significantly as prior hospitalization, with intermittently worsening delirium. Remains afebrile. Hospital Course: (1) Acute respiratory failure with hypoxia and hypercapnia: Current acute respiratory failure with hypoxia seems to mirror prior episode which occurred last month. Prior episode was deemed secondary to Pneumonia, with Pulmonary Edema occuring in setting of demand ischemia/NSTEMI. Patient has been diuresed, initiated on antibiotic therapy, and treated for ACS. Currently appears vastly improved subjectively and clinically. (2) Elevated troponin: Repeat elevation in troponin similiar in circumstances as last month she was transferred to [facility]. At that time her troponin elevated to a peak of 8.49, with a TTE that was essentially normal and without wall motion abnormalities. Patient's symptoms were deemed secondary to demand in the setting of infection and respiratory status. Patient's current troponin peaked at 2.55 prior to decreasing nicely, last checked at 0.93 on the morning of 07/11. Chest x-ray officially interpreted as either pulmonary edema or pneumonia, but patient was afebrile and without a significant leukocytosis (mildly elevated white blood count at time of admission). EKG abnormal as previously stated. Current episode likely constitutes a cardiac etiology, but cannot fully rule out infection. For now continue treatment of potential pneumonia with HCAP coverage. Patient has been diuresed nicely, and received 1 additional dose of Lasix yesterday morning. Continue high potency statin, DAPT with daily aspirin and clopidogrel, beta-ras therapy, and a heparin drip that was discontinued this morning after 48 hours. Echo obtained with results as above, with apparent drop in LVEF - For transfer and consideration for LHC and intervention if deemed appropriate. Discussed reversal of DNR/DNI for procedure, and family is accepting of this. (3) Multifocal pneumonia: Treatment as above. Currently on day #3 of antibiotic therapy with vancomycin and PIP-Tazo. (4) Alzheimer disease: Noted dementia, with intermittent periods of worsening confusion and acute delirium. Mrs. Sims reacted poorly to administration of benzodiazepine during her last visit, becoming quite obtunded and requiring reversal with flumazenil as well as rescue BiPAP. Upon presentation to [facility] she was found to be agitated, and required a Precedex infusion and four-point restraints. She later went on to require clonidine, as well as Haldol and gabapentin. Her QT prolonged and Haldol needed to be discontinued, with Seroquel being started. At time of her admission here she remains on Seroquel and gabapentin as a QTc sparing adjunct, and remains on her baseline doses of donepezil and SSRI. Current agitation appears to be mild. Very low-dose Haldol is ordered on a as needed basis, and patient remains on telemetry for QT monitoring. Will monitor symptoms closely. (5) DVT prophylaxis: Anticoagulation with Heparin gtt just discontinued - continue SCDs. (6) Advance directive on file: DNR/DNI. (7) Anemia: Development of anemia while on heparin drip, dropping from 13-14 to 11.5 yesterday, 10.4 this morning. Iron studies this morning with iron 71, TIBC low at 223, and Ferritin of 414. B12 and FA are both normal. Current inpatient medications: 1. Albuterol Neb 2.5 mg 2. Aspirin 81mg daily 3. Atorvastatin 40mg Qpm 4. Clopidogrel 75mg daily 5. Donepezil 10mg daily 6. Furosemide 40mg PO daily 7. Gabapentin 300mg PO BID 8. Metoprolol 25mg PO Q8 9. NTG 0.4mg SL Q5 minutes prn 10. Protonix IV 40mg BID 11. Zosyn 3.375 IV Q8 12.Seroquel 12.5mg BID prn, 25mg QHS 13. Sertraline 25mg daily 14. Vancomycin 750mg IV Q16H Home Meds and New Rx's Prescriptions: Continued donepezil 5 MG tablet 10 mg PO DAILY RF: 0 sertraline 25 MG tablet 25 mg PO DAILY RF: 0 aspirin 81 mg Tablet,Chewable 81 mg PO DAILY RF: 0 atorvastatin [Lipitor] 40 mg Tablet 40 mg PO QPM Qty: 0 RF: 0 albuterol sulfate 2.5 mg /3 mL (0.083 %) Solution For Nebulization 2.5 mg UPD Q4H PRN PRNQty: 0 RF: 0 quetiapine 25 mg Tablet 25 mg PO HS RF: 0 quetiapine 25 mg Tablet 0.5 mg PO PRN PRNRF: 0 gabapentin [Neurontin] 300 mg Capsule 300 mg PO BID RF: 0 metoprolol tartrate 25 mg Tablet 25 mg PO BID RF: 0 Discharge Instructions Activity:: OOB to chair Diet:: NPO as of this morning Discharge Orders Discharge Orders: Discharge Order (Routine); Ordered 07/12/18 Ordered By: Wellington Cowart Exam Narrative Exam Narrative: General: Patient appears comfortable, Awake and Alert, NAD. Not agitated at time of exam. Neck: Supple CV: Regular, nontachycardic. Pulmonary: Minimal bibasilar crackles, no wheezing or rhonchi Abdomen: + Bowel Sounds, soft, nontender, nondistended Vascular: No lower extremity edema DS: Data Vitals/I&O Vitals and I&O: Vital Signs Temperature 36.6 C 07/12/18 04:29 Temperature Source Tympanic 07/12/18 04:29 Pulse 87 07/12/18 05:48 Pulse 89 07/12/18 05:48 Respiratory Rate 25 H 07/12/18 03:44 Respiratory Effort 07/12/18 04:29 Respiratory Depth Normal 07/12/18 04:29 Respiratory Pattern Normal 07/12/18 04:29 Blood Pressure 133/44 L 07/12/18 05:48 Blood Pressure Mean 65 07/12/18 05:48 Blood Pressure Position Supine 07/12/18 04:29 Pulse Oximetry 95 07/12/18 05:58 Oxygen Delivery Method Room Air 07/12/18 05:58 Oxygen Flow Rate 0 07/12/18 05:58 Fraction of Inspired Oxygen (FIO2) 35 07/10/18 09:40 Pain Level 0 07/12/18 04:29 Comment 07/10/18 03:50 Intake & Output 07/11/18 07/11/18 07/12/18 11:59 23:59 11:59 Intake Total 1024.692 / 1847.275 822.583 / 1847.275 50 / 50 Output Total 750 / 1500 750 / 1500 250 / 250 Balance 274.692 / 347.275 72.583 / 347.275 -200 / -200 Weight 52.1 kg 52.9 kg Intake: IV 194.692 / 537.275 342.583 / 537.275 50 / 50 Oral 830 / 1310 480 / 1310 Output: Urine 750 / 1500 750 / 1500 250 / 250 Other: Urine Color Yellow Yellow Straw Urine Appearance Clear Clear Clear Urine Odor None Normal Comment mixed with stool Uses bedside commode Mixed with stool. Stool Occult Blood Negative Negative Stool Size Moderate Moderate Moderate Stool Characteristics Soft Soft Soft Brown Formed Voiding Methods Bedside Commode Bedside Commode Bedside Commode Completed studies during hospitalization [Text1]: Exam(s) a US:US echocardiogram Date of study: 07/11/2018 Transthoracic Echocardiography M-mode, complete 2D, complete spectral Doppler, and color Doppler *STUDY CONCLUSIONS* Summary: 1. Left ventricle: The cavity size was normal. Systolic function was mildly reduced. The estimated ejection fraction was 45-50%. Diffuse hypokinesis. Findings consistent with diastolic dysfunction. Doppler parameters are consistent with high ventricular filling pressure. MAC and MR can interfere with diastolic assessment. 2. Mitral valve: Moderately calcified annulus. There was moderate to severe regurgitation. No prolapse, flail, ruptured chord appreciated. 3. Left atrium: The atrium was severely dilated. 4. Right ventricle: The cavity size was normal. Wall thickness was normal. Systolic function was normal. 5. Pulmonary arteries: Pulmonary systolic pressure was in the range of 20mm Hg to 30mm Hg. 6. Inferior vena cava: The vessel was patent and normal in size. The respirophasic diameter changes were in the normal range (greater than or equal to 50%), consistent with normal central venous pressure. Exam(s) 07/10/2018 a RAD:XR portable chest AP SYMPTOM/DIAGNOSIS: CHF, PNEUMONIA PORTABLE AP CHEST at 1107 am: Comparison is made with examination from earlier in the day. Heart size and pulmonary vasculature appear stable and within normal limits. Since the prior examination, there has been significant improvement in the aeration of the lungs with some residual infiltrates seen predominantly in the left lung base. This may represent pulmonary edema or pneumonia. Exam(s) 07/10/2018 a RAD:XR portable chest AP SYMPTOM/DIAGNOSIS: SOB PORTABLE AP CHEST AT 0345 HOURS: Comparison is made with 06/11/18. The examination is suboptimal. The lung apices and portions of the left hemithorax were coned from view. Heart size appears within normal limits. There do appear to be bilateral pulmonary infiltrates. This may represent edema versus pneumonia. Labs on day of discharge: Labs from last 24 hours 07/12/18 07/12/18 07/12/18 06:25 06:25 06:25 WBC RBC Hgb Hct MCV MCH MCHC RDW Plt Count MPV Immature Gran % Neutrophils % Lymphocytes % Monocytes % Eosinophils % Basophils % Absolute Neutrophils Absolute Lymphocytes Absolute Monocytes Absolute Eosinophils Absolute Basophils Differential Comment RBC Morphology Polychromasia APTT 47.2 H Sodium Potassium Chloride Carbon Dioxide Anion Gap BUN Creatinine Estimated GFR/1.73 m2 Glucose Calcium Magnesium Iron 71 TIBC 223 L Transferrin % Sat 32 Ferritin Pending Vitamin B12 Pending Folate Pending 07/12/18 07/12/18 07/11/18 06:25 06:25 11:47 WBC 4.04 L RBC 3.35 L Hgb 10.4 L Hct 31.9 L MCV 95.2 H MCH 31.0 MCHC 32.6 RDW 14.6 Plt Count 150 MPV 10.5 Immature Gran % 0.2 Neutrophils % 74.2 Lymphocytes % 17.8 Monocytes % 5.4 Eosinophils % 1.7 Basophils % 0.7 Absolute Neutrophils 3.00 Absolute Lymphocytes 0.72 L Absolute Monocytes 0.22 Absolute Eosinophils 0.07 Absolute Basophils 0.03 Differential Comment Diff reviewed RBC Morphology See below Polychromasia Present APTT 57.5 H D Sodium 138 Potassium 4.0 Chloride 101 Carbon Dioxide 28.1 Anion Gap 8.9 BUN 13 Creatinine 0.90 Estimated GFR/1.73 m2 >= 60.00 Glucose 123 H Calcium 8.6 Magnesium 1.9 Iron TIBC Transferrin % Sat Ferritin Vitamin B12 Folate 07/12/18 08:06 Stool Stool Occult Blood (FIFI) - Pending Preliminary micro results at discharge 07/12/18 08:06 Stool Occult Blood (FIFI) - Pending Stool 07/10/18 04:48 Blood Culture - Preliminary Blood NO GROWTH 48 HOURS 07/10/18 04:40 Blood Culture - Preliminary Blood NO GROWTH 48 HOURS [facility] Medical History Advance directive on file (Acute) DVT prophylaxis (Acute) Elevated troponin (Acute) SOB (shortness of breath) (Acute) Multifocal pneumonia (Acute) Bilateral pleural effusion (Acute) Acute CHF (Acute) Sepsis (Acute) Acute respiratory failure with hypoxia and hypercapnia (Acute) Alzheimer disease (Chronic) NSTEMI (non-ST elevated myocardial infarction) (Acute) SOB (shortness of breath) (Acute) Atypical chest pain (Acute 06/23/15) Eczema (Chronic) Mild cognitive impairment (Chronic) Hypotension (Acute 06/23/15) Carotid artery stenosis (Chronic) Hyperlipidemia (Chronic) Dysphagia (Chronic) Essential tremor (Chronic) Osteoarthritis of hands, bilateral (Chronic) Dementia (Chronic) Dysphagia (Chronic) History of esophageal dilatation (Chronic) Surgical History H/O surgical procedure (Chronic) H/O: hysterectomy (Inactive) S/P cholecystectomy (Inactive) Social History Smoking/Tobacco Use Status: Never Drug use: Never Details: unable to obtain r/t pt condition Additional Social history: unable to assess privately
--- NOTE | 2018-07-12 11:10 | PDOC.CMPRO ---
Care Management Progress Note S/O: Lachelle was lying in bed, surrounded by family when CM met with her. She remains confused at baseline, her two daughters and were at her bedside and discussed plan for transfer and cardiac catheterization. CM discussed Palliative Care with Lachelle's family as well, who accepted educational resources for review. CM will continue to follow. A: 82 year old female admitted to [facility] 07/10/18 for CHF, Hypoxia P: Anticipate Lachelle will transfer to [facility] when a bed becomes available per MD. CM will continue to follow and support Lachelle and her family.
--- NOTE | 2018-07-12 11:39 | CMPROGNOTE_ITS ---
Care Management Progress Note S/O: Lachelle was lying in bed, surrounded by family when CM met with her. She remains confused at baseline, her two daughters and were at her bedside and discussed plan for transfer and cardiac catheterization. CM discussed Palliative Care with Lachelle's family as well, who accepted educational resources for review. CM will continue to follow. A: 82 year old female admitted to [facility] 07/10/18 for CHF, Hypoxia P: Anticipate Lachelle will transfer to [facility] when a bed becomes available per MD. CM will continue to follow and support Lachelle and her family.
== END 2018-07-12 13:05 | disposition short-term general hospital (02) | DRG 189 ==
LOC: ER 04:55 → ICU 05:50 → ER 07-11 13:35 → ICU 07-11 13:35
PROVIDERS: Admitting Provider General Practice; Emergency Provider Emergency Medicine; PCP Internal Medicine; Visit Provider Internal Medicine
DX: J96.02 Acute respiratory failure with hypercapnia (principal); J81.0 Acute pulmonary edema; J18.8 Other pneumonia, unspecified organism; F02.81 Dementia in other diseases classified elsewhere, unspecified severity, with behavioral disturbance; J96.01 Acute respiratory failure with hypoxia; R74.8 Abnormal levels of other serum enzymes; G30.9 Alzheimer's disease, unspecified; R94.31 Abnormal electrocardiogram [ECG] [EKG]; I34.0 Nonrheumatic mitral (valve) insufficiency; Z78.1 Physical restraint status; I45.81 Long QT syndrome; T43.4X5A Adverse effect of butyrophenone and thiothixene neuroleptics, initial encounter; Y92.239 Unspecified place in hospital as the place of occurrence of the external cause; D64.9 Anemia, unspecified; R13.11 Dysphagia, oral phase
CPT/HCPCS: 36410; 36415; 80048; 80053; 87040; 87449; 92610; 93005; 93306; 96365; 96367; 99223; 99233; 99239; 99285; G8996; 71045; 82607; 82728; 82746; 83540; 83550; 83735; 83880; 84484; 85025; 85610; 85730; 93010; J1940; J1941; J2543; J3370; J3490

== ENCOUNTER 2018-07-25 11:42 | Outpatient (REF) | payer MEDICARE, OTHER, SELFPAY ==
[2018-07-25 22:34] LABS: Anion Gap 9.2 mmol/L (3-11); BUN 7 mg/dL (7-18); CO2 29.8 mmol/L (21.0-32.0); CREATININE 0.85 mg/dL (0.55-1.02); Calcium 9.4 mg/dL (8.5-10.1); Chloride 98 mmol/L (98-107); Glucose 86 mg/dL (70-100); Potassium 3.9 mmol/L (3.5-5.1); Sodium 137 mmol/L (136-145)
== END 2018-07-25 12:02 ==
LOC: NCHCN 11:42
PROVIDERS: PCP Internal Medicine; Visit Provider Internal Medicine
DX: J81.1 Chronic pulmonary edema (principal)
CPT/HCPCS: 80048